=== PATIENT | female | born 1955 | race Caucasian/White ===

== ENCOUNTER 2018-05-04 09:29 | Emergency (ER) | payer BC ==
--- NOTE | 2018-05-04 10:04 | UC ---
Upper Extremity HPI - HPI Summary HPI Summary: 62 yo female presents accompanied by with complains of left shoulder/ upper arm pain for the past month that is worse today. says that pt has had CVAs in the past and her mental status has changed due to this, but nothing new and has had no changes over the last month since pain began. Pt tells me that for the last month she has been having left shoulder/upper arm pain that is worse with movement. She says that the pain starts at her left upper arm near her shoulder and radiates down to her proximal left forearm. Pain worse with movement and palpation. confirms the above. Pt has not taken anything OTC for her discomfort. Pain is better with rest and with not moving the extremity. Over the last few days has felt like her right arm is starting to bother her too and thinks that she might be using her right arm more recently due to pain in her left arm. says that pt had a similar issue after her CVAs and went to physical therapy with good results. Denies fever, recent illness, injury, fall, numbness, tingling, headache, dizziness, SOB, or chest pain. - History of Current Complaint Chief Complaint: UCAlteredMentalStatus Stated Complaint: ARM PAIN Time Seen by Provider: 05/04/18 09:33 Hx Obtained From: Patient, Family/Job Service Consultant Onset/Duration: Gradual Onset Severity Initially: Moderate Severity Currently: Severe Pain Intensity: 10 Pain Scale Used: 0-10 Numeric - Allergies/Home Medications Allergies/Adverse Reactions: Allergies Allergy/AdvReac Type Severity Reaction Status Date / Time Penicillins Allergy unk Verified 05/04/18 09:44 rivaroxaban Allergy unk Verified 05/04/18 09:45 Home Medications: Home Medications Allopurinol TAB* [Zyloprim 100 MG TAB*] 100 mg PO DAILY 05/04/18 [History Confirmed 05/04/18] Apixaban* [Eliquis*] 5 mg PO DAILY 05/04/18 [History Confirmed 05/04/18] Spironolactone TAB* [Aldactone TAB 25 MG*] 25 mg PO DAILY 05/04/18 [History Confirmed 05/04/18] raNITIdine HCl [Zantac 75] 150 mg PO DAILY 05/04/18 [History Confirmed 05/04/18] PMH/Surg Hx/FS Hx/Imm Hx - Additional Past Medical History Additional PMH: CVA Afib CHF Anemia Lymphoma Endocrine History: Hypothyroidism - Surgical History Surgical History: Yes Surgery Procedure, Year, and Place: LAPAROTOMY FOR HODGKINS DISEASE, HYSTERECTOMY cva x 2 - Family History Known Family History: Positive: Hypertension, Diabetes - Social History Lives: With Family Alcohol Use: Rare Substance Use Type: None Smoking Status (MU): Former Smoker - Immunization History Most Recent Influenza Vaccination: 2013 Most Recent Tetanus Shot: 2008 Most Recent Pneumonia Vaccination: 2010 Review of Systems All Other Systems Reviewed And Are Negative: Yes Constitutional: Positive: Negative Skin: Positive: Negative Respiratory: Positive: Negative Cardiovascular: Positive: Negative Gastrointestinal: Positive: Negative Neurovascular: Positive: Negative Musculoskeletal: Positive: Other: - Left upper arm pain Neurological: Positive: Negative Psychological: Positive: Negative Physical Exam - Summary Physical Exam Summary: GENERAL: NAD. WDWN. No pain distress. SKIN: No rashes, sores, lesions, or open wounds. CHEST: No accessory muscle use. Breathing comfortably and in no distress. CV: Pulses intact radial and ulnar. Cap refill <2seconds MSK: LEFT UE: TTP at biceps tendon near coracoid. TTP along biceps muscle with worst pain at mid biceps. Pain with elbow flexion and with >90deg shoulder flexion. Elbow NTTP. 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 No edema or obvious bony deformities. No cervical pain, posterior shoulder pain, or trapezius pain. NEURO: Alert. Sensations intact hand and all fingers. PSYCH: Age appropriate behavior. Triage Information Reviewed: Yes Vital Signs: Initial Vital Signs Temp 98 F 05/04/18 09:40 Pulse 66 05/04/18 09:40 Resp 16 05/04/18 09:40 BP 194/45 05/04/18 09:40 Pulse Ox 100 05/04/18 09:40 Vital Signs Reviewed: Yes Upper Extremity Course/Dx - Course Course Of Treatment: EKbpm afib with LVH as read by Dr. Torres. XR shoulder : IMPRESSION: AC joint arthritis. Left shoulder is otherwise unremarkable. XR humerus: IMPRESSION: No fracture of the left humerus is noted. Suspect tendinitis. Discussed with pt and and will try pt with physical therapy and advise her to take tylenol. F/u with PCP in 1-2 weeks for recheck. - Differential Dx/Diagnosis Provider Diagnosis: Biceps muscle strain, Afib Discharge - Sign-Out/Discharge Documenting (check all that apply): Patient Departure All imaging exams completed and their final reports reviewed: Yes - Discharge Plan Condition: Stable Disposition: HOME Patient Education Materials: Tendinitis (ED) Referrals: Talya Brooks MD [Primary Care Provider] - 1 Week Additional Instructions: If you develop a fever, shortness of breath, chest pain, new or worsening symptoms - please call your PCP or go to the ED. Your blood pressure was elevated at todays visit. Please see your primary provider within 4 weeks for recheck and re-evaluation. May take tylenol for discomfort. Please schedule a follow up with Physical Therapy for further evaluation and treatment of your arm pain Please make a follow up appointment with your Primary Doctor for 1-2 weeks for a recheck of your pain - Billing Disposition and Condition Condition: STABLE Disposition: Home
[2018-05-04 10:11] VITALS: BP 157/47
== END 2018-05-04 11:02 | disposition home or self-care (01) ==
LOC: UCEAST 09:29
DX: S46.212A Strain of muscle, fascia and tendon of other parts of biceps, left arm, initial encounter (principal); X58.XXXA Exposure to other specified factors, initial encounter; Y92.9 Unspecified place or not applicable; M19.012 Primary osteoarthritis, left shoulder; I48.91 Unspecified atrial fibrillation; Z79.01 Long term (current) use of anticoagulants; Z88.0 Allergy status to penicillin; Z88.8 Allergy status to other drugs, medicaments and biological substances; Z87.891 Personal history of nicotine dependence
CPT/HCPCS: 99211; G0463

== ENCOUNTER 2018-10-14 14:41 | Emergency (ER) | payer BC ==
[2018-10-14 16:17] VITALS: BP 157/50
--- NOTE | 2018-10-14 16:45 | UC ---
Respiratory Complaint HPI - HPI Summary HPI Summary: 62-year-old woman comes in with a chief complaint of upper respiratory tract infection symptoms for slightly less a week. She's had rhinorrhea cough chest congestion fevers. Denies any wheezing. - History of Current Complaint Chief Complaint: UCGeneralIllness Stated Complaint: COUGH,GARCÍA,SINUSES Time Seen by Provider: 10/14/18 16:15 Pain Intensity: 0 - Allergies/Home Medications Allergies/Adverse Reactions: Allergies Allergy/AdvReac Type Severity Reaction Status Date / Time Penicillins Allergy unk Verified 10/14/18 16:17 rivaroxaban Allergy unk Verified 10/14/18 16:17 Home Medications: Home Medications Digoxin TAB* [Lanoxin TAB*] 0.125 mg PO BEDTIME 10/14/18 [History Confirmed 08/28] PMH/Surg Hx/FS Hx/Imm Hx Previously Healthy: Yes Cardiovascular History: Atrial Fibrillation Respiratory History: Asthma Neurological History: CVA - Surgical History Surgical History: Yes Surgery Procedure, Year, and Place: LAPAROTOMY FOR HODGKINS DISEASE, HYSTERECTOMY, cva x 2 - Family History Known Family History: Positive: Hypertension, Diabetes - Social History Alcohol Use: Rare Substance Use Type: None Smoking Status (MU): Former Smoker - Immunization History Most Recent Influenza Vaccination: 2013 Most Recent Tetanus Shot: 2008 Most Recent Pneumonia Vaccination: 2010 Review of Systems All Other Systems Reviewed And Are Negative: Yes Constitutional: Positive: Fever Skin: Positive: Negative Eyes: Positive: Negative ENT: Positive: Nasal Discharge, Sinus Congestion Respiratory: Positive: Cough, Other - SEE HPI Cardiovascular: Positive: Negative Gastrointestinal: Positive: Negative Motor: Positive: Other - HX CVA Neurovascular: Positive: Other - HX CVA Musculoskeletal: Positive: Other: - HX CVA Neurological: Positive: Other - HX CVA Psychological: Positive: Negative Is Patient Immunocompromised?: No Physical Exam Triage Information Reviewed: Yes Appearance: No Pain Distress, Well-Nourished, Ill-Appearing - MILD Vital Signs: Initial Vital Signs Temp 100.5 F 10/14/18 16:13 Pulse 68 10/14/18 16:13 Resp 36 10/14/18 16:13 BP 157/50 10/14/18 16:13 Pulse Ox 97 10/14/18 16:13 Vital Signs Reviewed: Yes Eye Exam: Normal Eyes: Positive: Conjunctiva Clear ENT: Positive: Pharyngeal erythema, Nasal congestion, Nasal drainage, TMs normal Neck: Positive: Supple Respiratory: Positive: No respiratory distress, Rhonchi Cardiovascular: Positive: RRR Musculoskeletal Exam: Normal Musculoskeletal: Positive: Strength Intact, ROM Intact Neurological: Positive: Alert, Muscle Tone Normal, Other: - HX CVA; SPEECH IS LIMITED CHRONIC Psychological Exam: Normal Psychological: Positive: Age Appropriate Behavior Skin Exam: Normal Respiratory Course/Dx - Course Course Of Treatment: DISCUSSED VIRAL VERSES BACTERIAL INFECTION AND THE ROLE OF ANTIBIOTICS. THE PATIENT PREFERS TO BE ON ANTIBIOTICS AT THIS TIME. - Differential Dx/Diagnosis Provider Diagnosis: Bronchitis Discharge - Sign-Out/Discharge Documenting (check all that apply): Patient Departure All imaging exams completed and their final reports reviewed: No Studies - Discharge Plan Condition: Stable Disposition: HOME Prescriptions: Azithromycin TAB* [Zithromax TAB (Z-FELICITAS) 250 mg #6 tabs] 2 tab PO .TODAY, THEN 1 DAILY #1 felicitas Patient Education Materials: Acute Bronchitis (ED) Referrals: Talya Brooks MD [Primary Care Provider] - Additional Instructions: FOLLOW UP WITH YOUR DOCTOR IF NOT COMPLETELY IMPROVED. GET REEVALUATED SOONER IF WORSE OR ANY QUESTIONS OR CONCERNS. - Billing Disposition and Condition Condition: STABLE Disposition: Home
== END 2018-10-14 16:51 | disposition home or self-care (01) ==
LOC: UCCORT 14:41
DX: J40 Bronchitis, not specified as acute or chronic (principal); Z88.0 Allergy status to penicillin; I48.91 Unspecified atrial fibrillation; Z86.73 Personal history of transient ischemic attack (TIA), and cerebral infarction without residual deficits; Z87.891 Personal history of nicotine dependence
CPT/HCPCS: 99212; G0463

== ENCOUNTER 2019-06-20 03:05 | Inpatient (IN) | payer BC ==
[2019-06-20] MEDS ORDERED: NS 0.9% 1000 ML** 1,000 ML IV ONE (03:07)
--- OUTSIDE RECORDS SUMMARY | 2019-06-20 03:15 | XMS REPORT | Summary of Care ---
:1955 Author Organization [facility] Address [address] [facility] [place] [address] Care Team Providers Name Role Phone Talya Brooks Primary Care Provider Avila Agueda Unavailable Unavailable Reason for Visit Reason Comments Other medical release paper for [facility] Imm/Inj prevnar 13 administered today Encounter Details Date Type Department Care Team Description 05/10/2019 Office Visit [place] [facility] Talya Brooks MD Chronic atrial fibrillation (Primary Dx); Medicine [address] Takotsubo cardiomyopathy; [address] [place] [address] Cardiomyopathy, nonischemic (HCC); [place] [address] Hypothyroidism, unspecified type; [phone] TIA (transient ischemic attack); (Fax) Anticoagulant long-term use; Need for vaccination; Elevated blood sugar Allergies Active Allergy Reactions Severity Noted Date Comments Amiodarone GI Reaction 11/05/2008 Aspirin GI Reaction 05/05/2007 Peptic ulcer disease Bactrim Unknown Reaction 05/06/2007 Unsure if even allergic Olmesartan GI Reaction 05/20/2009 Medoxomil-Hctz Clarithromycin Unknown Reaction 05/05/2007 Carvedilol Rash High 08/29/2014 Diltiazem [employer] Reaction 11/18/2015 Bugs crawling on legs Estrogens Unknown Reaction 05/05/2007 Atorvastatin GI Reaction 02/01/2014 Lisinopril GI Reaction 02/01/2014 Penicillins Unknown Reaction 05/05/2007 Progesterone Other 10/11/2007 Propafenone Respiratory Reaction 02/20/2010 Spironolactone GI Reaction 08/26/2015 Rivaroxaban Other, GI Reaction 10/18/2013 Not clear - may have also been other medication documented as of this encounter (statuses as of 05/30/2019) Medications Medication Sig Dispensed Refills Start End Date Status Date acetaminophen Take 500 mg by 0 Active (TYLENOL) 500 MG mouth EVERY Oral Tab SIX HOURS NEEDED for Pain. famotidine (PEPCID) TAKE 1 TABLET 180 Tab 1 Active 40 MG Oral Tab BY MOUTH TWO 8 TIMES DAILY ELIQUIS 5 MG Oral TAKE 1 TABLET 60 Tab 11 Active Tab BY MOUTH TWO 8 TIMES DAILY Magnesium Oxide 400 TAKE 1 TABLET 180 Tab 3 Active (240 Mg) MG Oral Tab BY MOUTH TWO 9 TIMES DAILY atorvastatin TAKE 1 TABLET 90 Tab 3 Active (LIPITOR) 10 MG Oral BY MOUTH EVERY 9 Tab DAY allopurinol TAKE 1 TABLET 90 Tab 3 Active (ZYLOPRIM) 100 MG BY MOUTH EVERY 9 Oral TabIndications: DAY Essential hypertension spironolactone 50 MG Take 1 Tab by 30 Tab 0 Active Oral TabIndications: mouth DAILY. 9 Cardiomyopathy, nonischemic (HCC) Bisoprolol Fumarate Take 1 Tab by 30 Tab 11 Active 10 MG Oral mouth DAILY. 9 TabIndications: Cardiomyopathy, nonischemic (HCC) levothyroxine TAKE 1 TABLET 90 Tab 0 Active (SYNTHROID) 175 MCG BY MOUTH EVERY 9 Oral TabIndications: DAY Hypothyroidism, unspecified type digoxin (LANOXIN, Take 1 Tab by 30 Tab 11 Active DIGITEK) 125 MCG mouth DAILY. 0 Oral TabIndications: Chronic atrial fibrillation fluocinonide (LIDEX) by Topical 1 0 05/10/19 Discontinued 0.05% Apply route 8 20 (Patient stopped externally Cream NEEDED itch the medication) Apply externally prn triamcinolone USE 75 g 5 05/10/19 Discontinued (KENALOG,ARISTOCORT) DIRECTED TWO 4 20 (Patient stopped 0.1 % Apply TIMES A DAY the medication) externally Cream levalbuterol HFA Take 1-2 Puffs 1 Inhaler 1 05/10/19 Discontinued (XOPENEX HFA) 45 by inhalation 6 20 (Patient stopped MCG/ACT Inhalation EVERY SIX the medication) AerosolIndications: HOURS Cough NEEDED (cough). Cholecalciferol Take by 0 05/10/19 Discontinued (VITAMIN D3) 2000 mouth. 20 (Patient stopped UNITS Oral Cap the medication) torsemide (DEMADEX) Take 1 Tab by 90 Tab 3 05/10/19 Discontinued 10 MG Oral Tab mouth DAILY 8 20 (Patient stopped NEEDED (Leg the medication) swelling, shortness of breath, or weight gain). levothyroxine Take 1 Tab by 90 Tab 3 05/10/19 Discontinued (SYNTHROID) 200 MCG mouth BEFORE 8 20 (Therapy Oral TabIndications: BREAKFAST. Completed) Hypothyroidism, unspecified type levothyroxine Take 1 Tab by 90 Tab 3 05/10/19 Discontinued (SYNTHROID) 175 MCG mouth BEFORE 8 20 (Duplicate Oral TabIndications: BREAKFAST. Order) Hypothyroidism, unspecified type azithromycin Take 2 pills 1 6 Tab 0 05/14/19 (ZITHROMAX) 250 MG hour before 0 20 Oral Tab dental work documented as of this encounter (statuses as of 05/30/2019) Active Problems Problem Noted Date Nonrheumatic aortic valve stenosis 07/01/2015 Chronic atrial fibrillation 06/20/2015 Lung mass 02/28/2015 Overview: Noted hospitalization [facility] - seen under fluoro- More work up Pulmonary hypertension 02/27/2015 Type 2 diabetes mellitus without complication 11/27/2014 jail (current) use of anticoagulants 05/08/2014 Overview: 02/19/16 On Eliquis Managed by: [facility] Referring Provider: Hany Indication: afib Target Range: 2.0-3.0 Duration: Indefinite Additional factors influencing anticoagulation: CHADS2 score of 4 for previous stroke/TIA, hypertension, congestive heart failure Levothyroxine increases warfarin effect Has been on warfarin previously. Tried other NOACs, but had significant side effects Updated Referral: 05/03/14, 06/2015 Updated ACS Orders: 05/04/14, 07/01/15 DM (diabetes mellitus) 05/07/2014 Cardiomyopathy, nonischemic 02/08/2014 Meningioma 05/22/2013 Overview: Removed from spinal cord by Dr Belle BMI 30.0-30.9,adult 08/05/2011 Gout, unspecified 07/08/2011 Overview: Dx by Dr. Pereira, director of early childhood, 2012. Cerebral infarction 02/20/2010 Overview: Post spinal surgery with Dr Belle Takotsubo cardiomyopathy 05/20/2009 Acquired absence of uterus 11/05/2008 Overview: Also ovaries- had dysplasia A-fib 10/05/2008 Overview: Paroxysmal - Cath 02/17- no CAD Patient however did have CHF following KRYSTA at [facility]- EF transiently reported to be 25%- Diagnosis with Takotsuvo syndrome- Has tried NOAC with GI issues - Hypothyroid 05/31/2007 Asthma 05/31/2007 Spinal stenosis of thoracic region 05/31/2007 Overview: Surgery with damage to cord Esophageal reflux 05/05/2007 Personal history of Hodgkin's disease 05/05/2007 Overview: Treated with radiation and chemotherapy 1974 Migraine headache 05/05/2007 Sjogrens Syndrome 05/05/2007 Essential hypertension, benign documented as of this encounter (statuses as of 05/30/2019) Resolved Problems Problem Noted Date Resolved Date Meningitis 05/05/2007 10/11/2007 Overview: Documented as having Meningitis in 1977 Pneumonia, organism unspecified(486) 05/05/2007 10/11/2007 Overview: Documented as having pneumonia in 1974 Bursitis, shoulder 05/05/2007 10/11/2007 documented as of this encounter (statuses as of 05/30/2019) Immunizations Name Administration Dates Next Due Influenza (IM) Preservative Free 01/27/2018, 04/01/2015, 03/20/2011, 02/20/2010, 02/06/2008 Influenza (IM) W/Pres 02/01/2014 Influenza Vaccine 65 Yrs + 02/01/2019 Influenza Vaccine Whole 01/14/2017, 02/07/2009 Influenza Virus Vaccine - Whole 02/24/2007, 02/24/2006 PNEUMOCOCCAL POLYSACCHARIDE VACCINE 02/01/2002 Pneumococcal Conjugate(13 Valent) 05/10/2019 documented as of this encounter Social History Tobacco Use Types Packs/Day Years Used Date Never Smoker Smokeless Tobacco: Never Used Alcohol Use Drinks/Week oz/Week Comments No 0 Standard drinks or equivalent 0.0 Sex Assigned at Date Recorded Not on file documented as of this encounter Last Filed Vital Signs Vital Sign Reading Time Taken Comments Blood Pressure 136/78 05/10/2019 3:50 PM EST Pulse 87 05/10/2019 3:50 PM EST Temperature - - Respiratory Rate - - Oxygen Saturation 98% 05/10/2019 3:50 PM EST Inhaled Oxygen Concentration - - Weight 62.5 kg (137 lb 11.2 oz) 05/10/2019 3:50 PM EST Height 152.4 cm (5') 05/10/2019 3:50 PM EST Body Mass Index 26.89 05/10/2019 3:50 PM EST documented in this encounter Patient Instructions Patient InstructionsTalya Brooks MD - 05/10/2019 3:40 PM ESTTake 2 azithmycin ~ 1 hour before dental work - documented in this encounter Progress Notes Talya Brooks MD - 05/10/2019 3:40 PM EST NAME:Alecia Ortiz 1955: 1955 ENC Date: 05/30/2019 CC: Chief Complaint Patient presents with ? Other medical release paper for [facility] ? Imm/Inj prevnar 13 administered today Alecia Ortiz is a 63-y.o. female Complicated medical patient with the following diagnosis : h/o Tako-tsubo cardiomyopathy , HTN permanent Afib, CVA x 2, Hodgkin's disease s/p chest XRT but no chemo in 1973. 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 Current Outpatient Medications Medication Sig ? acetaminophen (TYLENOL) 500 MG Oral Tab Take 500 mg by mouth EVERY SIX HOURS NEEDED for Pain. ? allopurinol (ZYLOPRIM) 100 MG Oral Tab TAKE 1 TABLET BY MOUTH EVERY DAY ? atorvastatin (LIPITOR) 10 MG Oral Tab TAKE 1 TABLET BY MOUTH EVERY DAY ? Bisoprolol Fumarate 10 MG Oral Tab Take 1 Tab by mouth DAILY. ? digoxin (LANOXIN, DIGITEK) 125 MCG Oral Tab Take 1 Tab by mouth DAILY. ? ELIQUIS 5 MG Oral Tab TAKE 1 TABLET BY MOUTH TWO TIMES DAILY ? famotidine (PEPCID) 40 MG Oral Tab TAKE 1 TABLET BY MOUTH TWO TIMES DAILY ? levothyroxine (SYNTHROID) 175 MCG Oral Tab TAKE 1 TABLET BY MOUTH EVERY DAY ? Magnesium Oxide 400 (240 Mg) MG Oral Tab TAKE 1 TABLET BY MOUTH TWO TIMES DAILY ? spironolactone 50 MG Oral Tab Take 1 Tab by mouth DAILY. No current facility-administered medications for this visit. Patient Active Problem List Diagnosis Date Noted ? Nonrheumatic aortic valve stenosis 07/01/2015 Priority: High ? Chronic atrial fibrillation 06/20/2015 Priority: High ? DM (diabetes mellitus) (HCC) 05/07/2014 Priority: High ? Takotsubo cardiomyopathy 05/20/2009 Priority: High ? intermodal truck driver (current) use of anticoagulants 05/08/2014 Priority: Medium 02/19/16 On Eliquis Managed by: [facility] Referring Provider: Hany Indication: afib Target Range: 2.0-3.0 Duration: Indefinite Additional factors influencing anticoagulation: CHADS2 score of 4 for previous stroke/TIA, hypertension, congestive heart failure Levothyroxine increases warfarin effect Has been on warfarin previously. Tried other NOACs, but had significant side effects Updated Referral: 05/03/14, 06/2015 Updated ACS Orders: 05/04/14, 07/01/15 ? Lung mass 02/28/2015 Noted hospitalization [facility] - seen under fluoro- More work up ? Pulmonary hypertension (HCC) 02/27/2015 ? Type 2 diabetes mellitus without complication (HCC) 11/27/2014 ? Cardiomyopathy, nonischemic (HCC) 02/08/2014 ? Meningioma (HCC) 05/22/2013 Removed from spinal cord by Dr Belle ? BMI 30.0-30.9,adult 08/05/2011 ? Gout, unspecified 07/08/[address] Pereira, director of early childhood, 2011. ? Cerebral infarction (HCC) 02/20/[address] spinal surgery with Dr Belle ? Acquired absence of uterus 11/05/2008 Also ovaries- had dysplasia ? A-fib (HCC) 10/05/2008 Paroxysmal - Cath 02/17- no CAD Patient however did have CHF following KRYSTA at [facility]- EF transiently reported to be 25%- Diagnosis with Takotsuvo syndrome- Has tried NOAC with GI issues - ? Essential hypertension, benign ? Hypothyroid 05/31/2007 ? Asthma 05/31/2007 ? Spinal stenosis of thoracic region 05/31/2007 Surgery with damage to cord ? Esophageal reflux 05/05/2007 ? Personal history of Hodgkin's disease 05/05/2007 Treated with radiation and chemotherapy 1974 ? Migraine headache 05/05/2007 ? Sjogrens Syndrome 05/05/2007 Family History Problem Relation Age of Onset ? Heart Mother ? Diabetes Mother ? Psychiatry Mother ? Heart Father ? Stroke Father ? Heart Sister ? Breast Cancer Maternal Aunt No cardiopulmonary symptoms No upper or lower GI complaints No urinary tract symptoms. No bruising/ bleeding. No neurological complaints( weak on right side ) . No insomnia.+ . Social History Tobacco Use ? Smoking status: Never Smoker ? Smokeless tobacco: Never Used Substance Use Topics ? Alcohol use: No Alcohol/week: 0.0 standard drinks ? Drug use: No OBJECTIVE: BP 136/78 | Pulse 87 | Ht 5' (1.524 m) | Wt 137 lb 11.2 oz (62.5 kg) | SpO2 98% | BMI 26.89 kg/m . A/P ICD-9-CM ICD-10-CM 1. Chronic atrial fibrillation 427.31 I48.20 2. Takotsubo cardiomyopathy 429.83 I51.81 3. Cardiomyopathy, nonischemic (HCC) 425.4 I42.8 4. Hypothyroidism, unspecified type 244.9 E03.9 THYROID STIMULATING HORMONE BASIC METABOLIC PANEL 5. TIA (transient ischemic attack) 435.9 G45.9 6. Anticoagulant long-term use V58.61 Z79.01 7. Need for vaccination V05.9 Z23 [place] PNEUMOCOCCAL CONJ VAC(13 VALENT)(Z23) 8. Elevated blood sugar 790.29 R73.9 GLYCOHEMOGLOBIN A1C MICROALBUMIN, RANDOM URINE W/ CREATININE Patient Instructions Take 2 azithmycin ~ 1 hour before dental work - form for as pen dental AUTHOR: Talya Brooks MD 08:56 05/30/2019 documented in this encounter Plan of Treatment Date Type Specialty Care Team Description 08/03/2019 Lab Internal Medicine 08/08/2019 Orders Only Cardiology 08/10/2019 Office Visit Internal Medicine Talya Brooks MD [address] [place] [address] [phone] 08/14/2019 Office Visit Cardiology Lamine Almanza MD [facility] [place] [id number] [phone] Name Type Priority Associated Diagnoses Order Schedule THYROID STIMULATING HORMONE Lab Routine Hypothyroidism, Expected: 2019 unspecified type (Approximate), Expires: 05/10/2020 BASIC METABOLIC PANEL Lab Routine Hypothyroidism, Expected: 05/10/2019 unspecified type (Approximate), Expires: 11/06/2019 GLYCOHEMOGLOBIN A1C Lab Routine Elevated blood sugar Expected: 05/10/2019 (Approximate), Expires: 11/06/2019 MICROALBUMIN, RANDOM URINE Lab Routine Elevated blood sugar 1 Occurrences starting W/ CREATININE 05/10/2019 until 11/06/2019 Health Maintenance Due Date Last Done Comments Diabetic Eye Exam 1955 MAMMOGRAM (SCREENING) 07/30/2010 07/30/2009, 06/22/2007 HEMOGLOBIN A1C 11/01/2018 05/04/2018, 08/30/2017, 03/30/2017, Additional history exists OSTEOPOROSIS SCREENING 2018 FOOT EXAM 01/06/2019 01/06/2018, 01/06/2018, 01/06/2018, Additional history exists URINE MICROALBUMIN 05/04/2019 05/04/2018, 09/03/2015 DTaP/Tdap/Td Vaccines (1 - 08/04/2019 Postponed from Tdap) 1966 (Other) LIPID DISORDER SCREENING 09/13/2019 09/12/2018, 05/04/2018, 12/30/2017, Additional history exists DEPRESSION SCREENING 05/10/2020 05/10/2019 FALL RISK ASSESSMENT 05/10/2020 05/10/2019, 05/10/2019 PNEUMOCOCCAL 65+YRS (2 of 2 05/10/2020 05/10/2019, 02/01/2002 - PPSV23) ZOSTER IMMUNIZATION SERIES 05/10/2020 Postponed from (1 of 2) 12/29/2003 (Vaccine not available) INFLUENZA VACCINE Completed 02/01/2019, 01/27/2018, 01/14/2017, Additional history exists HEPATITIS A IMMUNIZATION Aged Out No longer eligible SERIES based on patient's age to complete this topic HPV IMMUNIZATION SERIES Aged Out No longer eligible based on patient's age to complete this topic MENINGOCOCCAL VACCINE IMM Aged Out No longer eligible based on patient's age to complete this topic documented as of this encounter Goals Goal Patient Goal Associated Recent Patient-Stated? Author Type Problems Progress Blood Pressure Blood Pressure 136/78 No Todd, < 140/90 (05/10/2019 MD Talya 3:50 PM EST) Note: This is an individualized treatment (blood pressure) goal for Alecia Ortiz: Displayed above (on the left) is your goal for blood pressure control. Your most recent blood pressure is also shown above, on the right. You should try to achieve blood pressures that are lower than your goal listed above (on the left). Weight increase vs. 18 mo min CHF 1.7 (05/10/2019 3:50 PM EST) No Talya Brooks MD (lbs) < 5 Note: This is an individualized treatment (congestive heart failure, CHF) goal for Alecia Ortiz: Displayed above (on the right) is how many pounds you are in excess of your lowest weight over the past 18 months. Note that lower numbers are better. Excessive weight gain often indicates fluid reten tion and worsening heart failure. You should contact your doctor immediately if the above number is too high (above your goal, the number on the left). Glycohemoglobin A1c < 7.0 Diabetes 6.8 (05/04/2018 11:37 AM No Talya Brooks MD EST) Note: This is an individualized treatment (diabetes control, HgbA1C) goal for Alecia Ortiz: Displayed above is your progress towards your HgbA1C goal. Your goal is shown above (on the left); your most recent HgbA1C is shown on the right. Note that lower numbers are better. Keep immunizations current Lifestyle Talya Rogers MD Note: This is an individualized lifestyle goal for Alecia Ortiz: Please be sure to keep up-to-date on recommended immunizations. For example, this would include a yearly influenza vaccine. Immunization status can be seen by looking at the Health Maintenance sections of your [facility], Plan of Care, and any After Visit Summaries. Consume a [id number] diet Lifestyle No Talya Brooks MD Note: This is an individualized lifestyle goal for Alecia Ortiz: Please do not add additional salt to your food. Additional salt may lead to fluid retention and worsen your congestive heart failure. Take all prescribed medications as directed Self-management No Talya Brooks MD Note: This is an individualized self-management goal for Alecia Ortiz: Please take all prescribed medications as directed. 1. Do not skip doses. If you cannot afford your medications, talk with your doctor. 2. Use a pill reminder system such as a pill box if needed. Your pharmacist can help you with this. 3. Contact your Pharmacy 5 days before your medication runs out. If you cannot take your medications for any reasons, talk with your doctor. 4. Please bring all of your medication bottles and inhalers (or a list of all your medications/inhalers) with you to every visit. Potential barriers to meeting all of your care plan goals will continue to be addressed on an ongoing basis. Check your weight daily Self-management No Talya Brooks MD Note: This is an individualized self-management goal for Alecia Ortiz: Please check your weight daily. Refer to the accompanying CHF treatment goal and call your doctor immediately for further instructions on how to respond to unexpected weight gain. documented as of this encounter Results Not on filedocumented in this encounter Visit Diagnoses Diagnosis Chronic atrial fibrillation Atrial fibrillation Takotsubo cardiomyopathy Takotsubo syndrome Cardiomyopathy, nonischemic (HCC) Other primary cardiomyopathies Hypothyroidism, unspecified type TIA (transient ischemic attack) Unspecified transient cerebral ischemia Anticoagulant long-term use Encounter for long-term (current) use of anticoagulants Need for vaccination Need for prophylactic vaccination and inoculation against unspecified single disease Elevated blood sugar Other abnormal glucose documented in this encounter Insurance Payer Benefit Plan / Subscriber ID Effective Dates Phone Address Type Group [employer] [id number] 2017-Present [employer] documented as of this encounter"
[2019-06-20] MEDS ORDERED: Iodixanol* (CONTRAST) 320 MG/ML 100 ML SDV IV ONE (03:19)
[2019-06-20] MEDS ORDERED: Ondansetron INJ* 2 MG/ML VIAL ONE ×2 (03:33→07:18)
--- NOTE | 2019-06-20 03:34 | ED ---
Neurological HPI - HPI Summary HPI Summary: Patient is a 63 y/o F w/ Hx of LVO of left internal carotid artery three years ago, afib, Hodgkin's lymphoma, CHF, HTN, cardiomyopathy who presents to [facility] via EMS for bilateral upper extremity weakness, facial droop, aphasia, and vomiting. accompanied the patient. It is reported that around 0230 , the patient had attempted to get out of bed, heard the patient fall at this time. Patient landed on wooden floor. found the patient with facial droop, bilateral arm weakness, and aphasia. Last known well is 233. The patient is on Eliquis for afib, claims to have given her an extra dose of Eliquis this evening. EMS reported that the patient had vomited en route and administered 4 mg Zofran. EMS BG is 122. EMS arrival at 0304, provider at bedside immediately to evaluate. Peter arora called at 0306, patient was wheeled to CT at this time. Patient is not a TPA candidate due to anti- coagulation therapy. Patient is a level 5 caveat secondary to aphasia. - History of Current Complaint Stated Complaint: POSSIBLE STORKE Time Seen by Provider: 06/20/19 03:06 Hx Obtained From: EMS Hx From Patient Unobtainable Due To: Other - level 5 caveat secondary to aphasia. Onset/Duration: Still Present Timing: Constant Neurological Deficit Location: Facial, RUE, LUE Character: Motor Weakness, Impaired Speech Associated Signs and Symptoms: Positive: Weakness, Impaired Speech, Nausea/ Vomiting - Additional Pertinent History Primary Care Physician: [id number] - Allergy/Home Medications Allergies/Adverse Reactions: Allergies Allergy/AdvReac Type Severity Reaction Status Date / Time carvedilol Allergy Rash Verified 06/20/19 03:40 clarithromycin Allergy Unknown Verified 06/20/19 03:40 Reaction Details diltiazem Allergy Anaphylatic Verified 06/20/19 03:40 Shock Estrogens Allergy Unknown Verified 06/20/19 03:40 Reaction Details Penicillins Allergy unk Verified 06/20/19 03:33 progesterone Allergy Unknown Verified 06/20/19 03:40 Reaction Details propafenone Allergy Hives/Diff. Verified 06/20/19 03:40 Breathing/I tching rivaroxaban Allergy unk Verified 06/20/19 03:33 spironolactone Allergy GI Upset Verified 06/20/19 03:40 sulfamethoxazole Allergy Unknown Verified 06/20/19 03:40 [From Bactrim] Reaction Details trimethoprim [From Bactrim] Allergy Unknown Verified 06/20/19 03:40 Reaction Details amiodarone AdvReac GI Upset Verified 06/20/19 03:40 aspirin AdvReac GI Upset Verified 06/20/19 03:40 lisinopril AdvReac GI Upset Verified 06/20/19 03:40 olmesartan AdvReac GI Upset Verified 06/20/19 03:40 Home Medications: Home Medications Levothyroxine TAB* [Synthroid 100 MCG TAB*] 175 mcg PO BEDTIME 12/18/15 [ History Confirmed 06/20/19] Allopurinol TAB* [Zyloprim 100 MG TAB*] 100 mg PO BEDTIME 05/04/18 [History Confirmed 06/20/19] Spironolactone TAB* [Aldactone TAB 25 MG*] 50 mg PO BEDTIME 05/04/18 [History Confirmed 06/20/19] Digoxin TAB* [Lanoxin TAB*] 0.125 mg PO BEDTIME 10/14/18 [History Confirmed 01/29] Atorvastatin* [Lipitor 10 MG*] 10 mg PO DAILY 06/20/19 [History Confirmed ] Famotidine 40 mg PO DAILY 06/20/19 [History Confirmed 06/20/19] Magnesium Oxide TAB* [MagOx 400 TAB*] 400 mg PO BID 06/20/19 [History Confirmed 06/20/19] Apixaban* [Eliquis*] 5 mg PO BID 30 Days #30 06/23/19 [Rx Confirmed 06/20/19] Benzocaine/Menthol SARA* [Chloraseptic SARA*] 1 sara PO Q6H PRN lozenge 06/23/19 [ Rx] Bisoprolol TAB* [Zebeta TAB*] 5 mg PO BEDTIME 30 Days #30 06/23/19 [Rx Confirmed 06/20/19] levETIRAcetam TAB* [Keppra TAB*] 500 mg PO Q12H 30 Days #60 tab 06/23/19 [Rx] PMH/Surg Hx/FS Hx/Imm Hx Endocrine/Hematology History: Denies: Hx Diabetes, Hx Systemic Lupus Erythematosus Cardiovascular History: Reports: Hx Congestive Heart Failure, Hx Hypertension, Other Cardiovascular Problems/Disorders - EF 25%, cardiomyopathy Respiratory History: Reports: Hx Asthma, Other Respiratory Problems/Disorders GI History: Reports: Hx Gastroesophageal Reflux Disease History: Denies: Hx Renal Disease Sensory History: Reports: Hx Contacts or Glasses Opthamlomology History: Reports: Hx Contacts or Glasses - Cancer History Cancer Type, Location and Year: HODGKINS DISEASE Hx Chemotherapy: No - Surgical History Surgery Procedure, Year, and Place: LAPAROTOMY FOR HODGKINS DISEASE, HYSTERECTOMY, cva x 2 Hx Anesthesia Reactions: No Infectious Disease History: Denies: Traveled Outside the [place] in Last 30 Days - Family History Known Family History: Positive: Hypertension, Diabetes - Social History Alcohol Use: Rare Substance Use Type: Reports: None Smoking Status (MU): Former Smoker Review of Systems - ROS Summary Review of Systems Summary: Patient is a level 5 caveat secondary to aphasia. Positive: Vomiting Neurological/Mental Status: Other - IMPAIRED SPEECH Positive: Weakness All Other Systems Reviewed And Are Negative: No - Comments Additional Review of Systems Comments: Patient is a level 5 caveat secondary to aphasia. Physical Exam - Summary Physical Exam Summary: General: Well-developed, Well-nourished female. No acute distress. HEENT: Normocephalic, Atraumatic. Eyes: Conjuctiva normal, PERRL. Oropharynx: Clear, mucous membranes moist, (-) exudates. Fresh blood in the oropharynx. Neck: Soft, FROM, (-) lymphadenopathy, (-) thyromegaly, (-) JVD. Cardiovascular: Normal sinus rhythm, (-) murmur. Lungs: Clear to auscultation bilaterally (-) wheezes, (-) rales, (-) rhonchi. Abdomen: Soft, non-tender, non-distended, (-) organomegaly, normal bowel sounds. Back: (-) CVA tenderness Extremities: No edema. Skin: Warm, dry, (-) rash. Neuro: GCS of 12, NIH of 5, see scales for breakdown Psychiatric: Mood normal, affect normal. Triage Information Reviewed: Yes Vital Signs On Initial Exam: Initial Vital Signs Temp 97.5 F 06/20/19 03:30 Pulse 89 06/20/19 03:30 Resp 28 06/20/19 03:30 BP 199/64 06/20/19 03:30 Pulse Ox 100 06/20/19 03:30 Vital Signs Reviewed: Yes Completion Of Physical Exam Limited Due To: Level 5 - Coyote Coma Scale Best Eye Response: 4 - Spontaneous Best Motor Response: 6 - Obeys Commands Best Verbal Response: 2 - Incomprehensible Words Coma Scale Total: 12 Procedures - Sedation Patient Received Moderate/Deep Sedation with Procedure: No Diagnostics - Laboratory Result Diagrams: 06/22/19 06:17 06/22/19 06:17 Lab Statement: Any lab studies that have been ordered have been reviewed, and results considered in the medical decision making process. - CT BRAIN CT CT Interpretation Completed By: Radiologist Summary of CT Findings: BRAIN CT IMPRESSION: Multiple old infarcts as described in detail above. If clinically concerned for. acute infarct further workup with MRI is recommended. THIS REPORT WAS REVIEWED BY ED PHYSICIAN. HEAD CTA CT Interpretation Completed By: Radiologist Summary of CT Findings: HEAD CTA IMPRESSION: No occlusion or significant stenosis. No aneurysm. NECK CTA IMPRESSION: No hemodynamically significant stenosis. No dissection or occlusion. Nodule in the lingula measuring 4.4 mm, further evaluation with CT chest is. recommended. THIS REPORT WAS REVIEWED BY ED PHYSICIAN. - EKG 0514 Cardiac Rate: Other Rate - afib with rate of 64 BPM EKG Rhythm: Atrial Fibrillation Summary of EKG Findings: EKG showed afib with rate of 64 BPM, no STEMI. ED physician has reviewed and interpreted this EKG. NIH Scale - NIH Scale Level of Consciousness: Alert/Keenly Responsive Ask Patient the Month and His/Her Age: Both Correct Ask Pt to Open/Close Eyes and Proposal Editor/Release Non-Paretic Hand: Both Correctly Best Gaze (Only Horizontal Eye Movement): Normal Visual Field Testing: No Visual Loss Facial Paresis-Pt to Smile & Close Eyes or Grimace Symmetry: Normal/Symmetrical Motor Function - Right Arm: No Drift-Holds 10 Seconds Motor Function - Left Arm: No Drift-Holds 10 Seconds Motor Function - Right Leg: No Drift-Holds 10 Seconds Motor Function - Left Leg: No Drift-Holds 10 Seconds Limb Ataxia-Must be out of Proportion to Weakness Present: Absent Sensory (Use Pinprick to Test Arms/Legs/Trunk/Face): Normal Best Language (Describe Picture, Name Items): Mute/Global Aphasia Dysarthria (Read Several Words): Unintelligible or Mute Extinction and Inattention: No Abnormality Total Score: 5 NIH Stroke Scale Comment: 0338 - initial NIH score complete Re-Evaluation - Re-Evaluation First Eval Re-Evaluation Time: 03:32 Comment: Patient returned from CT. It is reported that the patient began to vomit after the CTA; blood was noted in the vomit. Patient is capable of smiling in room, reports this is significantly improved. Second Eval Re-Evaluation Time: 06:30 Comment: We called for admission at 0500. At 0630, was called to room for change to condition. Patient was unresponsive and snoring. states that the patient had seizure-like activity just before this. Hospitalist was called immediately for change in condition. Request to have them come evaluate the patient. At 0700, hospitalist is not present. Dr. Fuentes made aware that the patient is awaiting admission. Course/Dx - Course Course Of Treatment: 63-year-old female presents by ambulance from home after fall. Patient is aphasic. Apparently she got up from her bed to go to the bathroom. Ended up falling with the top half of her on the bed. She also had an episode of vomiting after that. History is obtained from EMS and who arrived shortly thereafter. Patient had equal strength in her arms and legs at presentation. Good extraocular eye movement. But mute. Peter Arora called. Patient sent to CAT scan. After CT head and CT is of head neck patient had vomiting. The vomit appeared to have blood in it. Upon returning to the room patient is able to follow commands. Shake her head yes or no. Full physical exam performed. See NIH, score initially 5. Telemetry neuro consult initiated. CT head read as negative. CTA head and neck returned shortly thereafter as negative. Patient is not a TPA candidate as she is currently on eliquis. There is some vagueness about whether or not she has been taking her morning dose of our eliqius. does note when she started having symptoms today he did give her an extra dose of eliquis although he is not really sure if she took her evening meds. Symptoms gradually improved through this process. She is given Protonix for hematemesis. IV fluids. Zofran. Telemetry neuro consult recommended admission, MRI in the morning. Holding eliquis until that is completed. Workup demonstrates a slightly elevated white count, glucose, and INR. Patient referred to hospitalist for admission. While waiting for admission I was called back to the room at 6:30. Patient had unresponsiveness and snoring respirations when the nurse entered the room. noted that patient had had some seizure- like activity just prior. No history of seizures. Hospitalist date aware. No further orders at this time. - Diagnoses Provider Diagnoses: Aphasia, Hematemesis During the Visit The Following Alert/Code Occurred: Code Freeman - Code arora called at 0306, patient was wheeled to CT at this time. Patient is not a TPA candidate due to anti-coagulation therapy. Brain CT done at 0307. 0334 - report given to transfer center. 0338 - initial NIH score complete 0340 - radiologist called and states brain CT shows no acute process. 0345 - [place] neurologist consult held. 0357 - Radiologist conveys negative Head CTA. - Physician Notifications Discussed Care Of Patient With: Albert Sorensen Time Discussed With Above Provider: 03:45 Instructed by Provider To: Other - Patient's case was discussed with Dr. Sorensen , stroke neurologist at [facility] in [place]. He notes patient is not a TPA candidate and does not see LVO on CTA. 0452 - Dr. Sorensen conducted tele- stroke evaluation, it is recommended that the patient be admitted. MRI to be done and Eliquis held until MRI is completeled. 0503 - Patient's case was discussed with Dr. Coles, Dr. Coles accepts for admission - Critical Care Time Critical Care Time: 75-104 min - 121 minutes of CCT Discharge ED - Sign-Out/Discharge Documenting (check all that apply): Patient Departure - admit - Discharge Plan Condition: Fair Disposition: ADMITTED TO [facility] - Billing Disposition and Condition Condition: FAIR Disposition: Admitted to [facility] - Attestation Statements Document Initiated by Scribe: Yes Documenting Scribe: NIKKY LEGER Provider For Whom Eleno is Documenting (Include Credential): BHAVYA BRYANT MD Scribe Attestation: INIKKY, scribed for BHAVYA BRYANT MD on 06/24/19 at 0036. Scribe Documentation Reviewed: Yes Provider Attestation: The documentation as recorded by the scribeNIKKY accurately reflects the service I personally performed and the decisions made by me, BHAVYA BRYANT MD Status of Scribe Document: Viewed
[2019-06-20] MEDS ORDERED: Pantoprazole IV* 40 MG IV ONE (03:38)
[2019-06-20 03:57] LABS: ABS Basophils 0.1 10^3/ul (0-0.2); ABS Eosinophils 0.1 10^3/ul (0-0.6); ABS Lymphocytes 2.6 10^3/ul (1.0-4.8); ABS Monocytes 0.9 10^3/ul (0-0.8); ABS Neutrophils 9.4 10^3/ul (1.5-7.7); Eosinophil % 1.1 %; Hematocrit 40 % (35-47); Hemoglobin 13.3 g/dL (12.0-16.0); Lymphocyte % 19.7 %; Mean Corpuscular HGB Conc 33 g/dL (31-36); Mean Corpuscular Hemoglobin 31 pg (27-31); Mean Corpuscular Volume 92 fL (80-97); Mean Platelet Volume 8.8 fL (7.4-10.4); Platelet Count 278 10^3/uL (150-450); Red Blood Count 4.36 10^6 /uL (3.70-4.87); Red Cell Distribution Width 15 % (10-15); White Blood Count 13.1 10^3/uL (3.5-10.8)
[2019-06-20 04:03] LABS: Activated Partial Thrombo Time 33.4 seconds (26.0-38.0); INR 1.45 (0.82-1.09)
[2019-06-20 04:13] LABS: Albumin 3.6 g/dL (3.2-5.2); Albumin/Globulin Ratio 1.2 (1-3); BUN/Creatinine Ratio 15.4 (8-20); Calcium 8.6 mg/dL (8.6-10.3); EGFR African American 89.7 (>60); EGFR Non-African American 74.1 (>60); HDL Cholesterol 28.3 mg/dL; Potassium 3.9 mmol/L (3.5-5.0); Total Bilirubin 0.4 mg/dL (0.2-1.0); Total Protein 6.6 g/dL (6.4-8.9)
[2019-06-20 04:14] LABS: Troponin I 0.01 ng/mL (<0.03)
[2019-06-20] MEDS ORDERED: fentaNYL* 50 MCG/ML 2 ML VIAL (100 MCG VIAL) IV SLOW PU ONE (04:21)
[2019-06-20] MEDS ORDERED: Ondansetron INJ* 2 MG/ML VIAL IV ONE ×2 (04:25→07:21)
[2019-06-20 07:03] LABS: Urine Appearance Clear; Urine Bilirubin Negative (Negative); Urine Blood Negative (Negative); Urine Color Yellow; Urine Glucose Negative (Negative); Urine Ketones Negative (Negative); Urine Nitrite Negative (Negative); Urine Protein Negative (Negative); Urine Urobilinogen Negative (Negative)
[2019-06-20] MEDS ORDERED: Lorazepam PYXIS KEY ONE (07:18)
[2019-06-20] MEDS ORDERED: LORazepam INJ* 2 MG/ML 1 ML VIAL ONE (07:19)
[2019-06-20] MEDS ORDERED: LORazepam INJ* 2 MG/ML 1 ML VIAL IV PUSH ONE (07:19)
[2019-06-20] MEDS ORDERED: levETIRAcetam 1000MG IVPREMIX* 1,000 MG/100 ML BAG IVPB ONE (07:33)
[2019-06-20] MEDS ORDERED: NS 0.9% 1000 ML** 1,000 ML IV SCH (08:00)
[2019-06-20] MEDS: NS 0.9% 1000 ML** 1,000 ML IV SCH (08:08)
[2019-06-20] MEDS ORDERED: Albuterol/Ipratropium NEB.SOL* Albuterol 2.5 MG/Ipratropium 0.5 MG 3 ML INH PRN (08:14)
[2019-06-20 11:10] LABS: Digoxin 0.8 ng/ml (0.8-2.0)
[2019-06-20 11:24] LABS: TSH (Thyroid Stimulating Horm) 0.06 mcIU/mL (0.34-5.60)
--- NOTE | 2019-06-20 13:33 | HP ---
CC: Dr. Brooks; Dr. Santos * HISTORY AND PHYSICAL: DATE OF ADMISSION: 06/20/19 PRIMARY CARE PROVIDER: Dr. Brooks. MY ATTENDING PHYSICIAN WHILE IN THE HOSPITAL: Dr. Milligan * (report dictated by Dominga Askew NP). CONSULTING NEUROLOGIST: Dr. Santos. CHIEF COMPLAINT: Altered mental status. HISTORY OF PRESENT ILLNESS: Ms. Ortiz is a 63-year-old female patient with a history of stroke x2, aortic stenosis, Hodgkin's lymphoma, history of meningioma , hypertension, asthma, cardiomyopathy that was Takotsubo's, Sjogren's, CHF, the last reported echo showed an EF of 30% to 35%, gout, hypothyroidism, AFib, and borderline diabetes, who comes in today. The noted that around 2:30 , the patient was trying to get out of bed, she vomited x1 according to the reports, but he noted and he told me that she was staring, she had lost control of her urine. She had soiled herself. There were no reports of tongue biting. He seemed to believe that she became tense and right after this episode that lasted may be about 5 minutes, she was very confused. She could not really speak. He was concerned that she may have had a stroke. He gave her an extra 5 mg of apixaban. Her does report that prior to this she had been doing well. She had been in her normal state of health. She had diarrhea approximately a week ago that has since resolved. The patient's was awoken by hearing a thump and hearing some grunting as well. She had lost control again of diarrhea. He reports that her legs had just given out. En route to the hospital, it was reported that she vomited once. The patient returned to her baseline eventually. Per Telestroke, she was not recalling any of the events that had happened. There was concern for a possible TIA and we were asked to evaluate for admission. While the patient was in the ER, there was an episode around 7 o'clock where she, according to the , became stiff, started staring, tried to get out of the bed again, was shaking, it lasted perhaps a minute. He called for help. Nursing staff ran to his aid and noted that the patient seemed to be very confused and somnolent. There was concern because of the mental status change again that was noted in the ER and the ER attending had asked us to come and evaluate urgently. The patient was evaluated and again it was noted that she did appear to be staring off at times during my evaluation. Ativan was ordered and given along with 1 g of Keppra and the episode of staring, when I was in there, lasted approximately 30 seconds to 1 minute and there was concern for possible seizure, and because of this, we admitted the patient to the ICU. The family denied any recent fevers, no chest pain, no cough, no shortness of breath has been reported and no recent change in medications. It is noted that she takes the Eliquis once a day. PAST MEDICAL HISTORY: Significant for: 1. CVA x2. 2. Aortic stenosis. 3. Hodgkin's lymphoma. 4. Meningioma. 5. Hypertension. 6. Asthma. 7. Cardiomyopathy, 8. Sjogren's. 9. CHF. 10. Gout. 11. Hypothyroidism. 12. AFib. 13. Borderline diabetes. PAST SURGICAL HISTORY: She has had a D and C. MEDICATIONS: Home medications include: 1. Famotidine 40 mg daily. 2. Apixaban 5 mg daily. 3. Magnesium oxide 400 mg p.o. b.i.d. 4. Lipitor 10 mg daily. 5. Spironolactone 50 mg at bedtime. 6. Synthroid 175 mcg daily. 7. Digoxin 0.125 mg at bedtime. 8. Zebeta 10 mg at bedtime. 9. Allopurinol 100 mg at bedtime. ALLERGIES TO MEDICATIONS: Include ASPIRIN and PENICILLIN along with CARVEDILOL , CLARITHROMYCIN, DILTIAZEM, PROGESTERONE, PROPAFENONE, XARELTO, SPIRONOLACTONE , BACTRIM, AMIODARONE, ASPIRIN, LISINOPRIL and BENICAR. FAMILY HISTORY: Her mother had a TIA. Father's history is unknown. SOCIAL HISTORY: She does not smoke. She occasionally drinks alcohol. Surrogate decision maker is her . REVIEW OF SYSTEMS: There is no documented fever and denied having any significant weight change. There is no double vision. Denied having any ear discharge. No rhinorrhea. No sore throat. No thyroid enlargement. Denied any chest pain. There is no orthopnea. There is no nocturnal dyspnea. No abdominal pain. There was 1 episode of nausea and vomiting in the ambulance, an episode of diarrhea and of incontinence of stool. There was concern for a possible seizure-like activity. Review of 14 systems completed, all others negative. PHYSICAL EXAMINATION GENERAL: At this time, Mrs. Ortiz is a 63-year-old female patient. She is sitting in the ED stretcher. She again was noted to be staring off when I initially came to evaluate her. After treating her with Ativan and Keppra, she is noted to be somnolent, but she will respond to pain. She will follow very simple commands. VITAL SIGNS: Blood pressure 171/68 with a pulse of 78, respirations are 24, O2 sat 100%, temperature 97.5. HEENT: Head: Atraumatic and normocephalic. Eyes: EOMs are intact. Sclerae anicteric, not pale. Throat: Oral mucosa appears to be dry. No oropharyngeal erythema. NECK: Supple. LUNGS: Clear to auscultation bilaterally. No wheezes, rales, or rhonchi. HEART: Heart sounds S1 and S2. Irregularly irregular rate. No murmurs, rubs, or gallops. ABDOMEN: Soft, flat, nontender. Bowel sounds are present. EXTREMITIES: No peripheral edema. NEUROLOGIC: She will respond to pain. She will not say her name at this point. Pupils were equal and reactive. She withdraws all 4 extremities to pain. She will follow very simple commands such as opening and closing her hand only. She will not hold her arm up off the bed; she does not understand this command. She does not appear to be focal at this point. She will respond to visual confrontation and threat. She is unable to tell me the month, year, or place. She is basically nonverbal at this point. With pain, she will say Ow and again will withdraw all 4 extremities. SKIN: Intact. DIAGNOSTIC STUDIES/LAB DATA: WBC 13.1, RBC 4.36, hemoglobin 13.3, hematocrit 40, platelet count 278. INR 1.45. PTT 33.4. Sodium 137, potassium 3.9, chloride of 105, bicarb 25, BUN 12, creatinine 0.78, glucose 155, lactate 2.7, calcium 8.6, total bili 0.4, AST 19, ALT 12, alk phos 122, troponin 0.01, albumin 3.6, LDL 35. Urine was obtained; it was negative. She did have a chest x-ray obtained today, which showed cardiomegaly. No pleural effusions. Some mild pulmonary edema was noted. No infiltrates. She had a head CTA obtained as well, which showed, impression: No hemodynamically significant stenosis. No dissection or occlusion. Nodule in the lingula measuring 4.4 mm. Further evaluation with CT chest is recommended. CTA of the head, impression: No occlusion or significant stenosis. No aneurysm. Brain CT obtained showed multiple infarcts as described in detail above. There is clinically concern for acute infarct. Workup with MRI recommended. She underwent an EKG as well. It showed atrial fibrillation with a rate of 64. She did have some ST depression in V4, V5 and V6 along with V3, lead I and also lead II. When you review it to her previous EKG from 2016, it appears to be stable. Old medical records were reviewed. ASSESSMENT AND PLAN: Mrs. Ortiz is a 63-year-old female patient coming into the ER today with altered mental status. There was report that she was staring off. In addition to this, she was incontinent of stool. The patient in the ER was noted to have an episode per the where she was shaking and stared off, lasting about a minute. Nursing staff was alerted. By the time they got there, she did appear to be postictal per the nursing staff. When I evaluated the patient, she did have some staring off. I was concerned for seizure and gave her Ativan and subsequently thereafter, she is really only withdrawing to pain and she will follow very simple commands such as opening and closing her hand around the fingers. She will be admitted on an inpatient status for: 1. Altered mental status. My main concern here is that the patient may have suffered a seizure. She certainly has risk factors for it. I discussed the case with Dr. Santos. He will be seeing the patient. My plan will be to get an MRI of the brain with and without. I will also get an EEG. I have given her a gram of Keppra and they will do 500 mg twice a day. I have given her Ativan as well. Currently, we will get neuro checks every hour. I have placed her in the ICU. I did touch base with the tonsorial artist and also touched base with the nurse practitioner covering the ICU and they were in agreement. They will follow the patient. 2. History of cerebrovascular accident. Again, in the setting of possible new infarct, I would like to wait for the MRI before starting her Eliquis again. I would certainly get neuro checks. CTA was done. We will get an echo with bubble study and place her on telemetry. She does have atrial fibrillation and she only takes Eliquis at once a day. So, I think repeating an echo is important to make sure there is no thrombus. Frequent neuro checks are checked. I have checked an A1c and we will restart the Eliquis when it is safe. 3. Aortic stenosis. We are going to check an echocardiogram. 4. History of asthma. I have ordered p.r.n. DuoNebs. 5. History of atrial fibrillation. Again, in the setting of possible acute cerebrovascular accident, we will hold on restarting this. We will restart when able if safe. 6. Cardiomyopathy. She does not appear to be in any acute failure. At this point, we will diurese if needed. 7. Hypertension. I will allow for permissive hypertension. 8. Sjogren's. Continue with the current medical regimen. 9. Congestive heart failure. She does not appear to be in exacerbation. 10. Gout. We will restart allopurinol when able. 11. Hypothyroidism. I will check her TSH. We will continue Synthroid. 12. Borderline diabetes. She can follow this with her primary. 13. DVT prophylaxis. Again, I would hold on ordering any DVT prophylaxis. She did get an extra dose of Eliquis tonight, but I would like to await the MRI to restart her Eliquis. 14. Code status: Full code. 15. Fluids, electrolytes and nutrition: She is n.p.o. pending a bedside swallowing evaluation. TIME SPENT: Time spent on the admission which is critical care time was 90 minutes, greater than half the time was spent [id number] with the patient obtaining my history of physical; the other half time was spent going over the plan of care with the patient and implementing plan of care. I did discuss the plan of care with my attending, Dr. Milligan; he is in agreement. DOMINGA ASKEW, RONI [id number]/[facility] #: [id number] FREIDA
--- NOTE | 2019-06-20 15:27 | ECHO ---
*[facility] [place] [address] Fax #: [phone] Transthoracic Echocardiogram Patient: Alecia Ortiz : 1955 Study Date: 06/20/2019 Age: 63 Gender: F HR: 75 bpm Height: 60 in /152.4 cm BSA: 1.63 m^2 Weight: 144.7 lb /65.8 kg BMI: 28.3 kg/m^2 *Visual Merchandise Manager: * Charley Solano [facility] *Referring Physician: * Sae AskewReading Physician: * Mauro Moran MD Indications: TIA. History: Hodgkins lymphoma, carotid disease. Atrial fibrillation. Congestive heart failure. Aortic stenosis. Cerebrovascular accident. PMH: Cardiomyopathy. Risk factors: Hypertension. Conclusions Summary: - Left ventricle: Systolic function is normal. The estimated ejection fraction is 55-60%. Wall motion is normal; there are no regional wall motion abnormalities. - Right ventricle: Systolic function is normal. - Atrial septum: A PFO is not demonstrated by color Doppler or agitated saline contrast. Negative bubble study. - Mitral valve: The findings are consistent with mild stenosis. There is mild regurgitation. - Aortic valve: The findings are consistent with moderate stenosis. There is moderate regurgitation. The mean systolic gradient is 24.0 mm Hg. The valve area by the velocity-time integral method is 0.93 cm^2. The valve area by the peak velocity method is 1.01 cm^2. - Tricuspid valve: There is moderate-severe regurgitation. - Pulmonary arteries: Systolic pressure is severely increased. Estimated pulmonary artery systolic pressure is 65-70 mmHg. - Compared to study of 12/19/15, the left ventricle function is the same. The degree of and aortic regurgitation is slightly worse. Pulmonary hypertension is the same. Study data: Transthoracic echocardiogram. Procedure: Transthoracic echocardiography was performed. Image quality was adequate. A bubble study was performed. Complete 2D, spectral Doppler, and color flow Doppler. Location: ICU Patient status: Inpatient. Patient room number: 13. Rhythm: Atrial flutter. Findings Left ventricle: Wall thickness is mildly to moderately increased. Systolic function is normal. The estimated ejection fraction is 55-60%. Wall motion is normal; there are no regional wall motion abnormalities. Left ventricular diastolic function parameters are indeterminate. Right ventricle: The cavity size is normal. Systolic function is normal. Left atrium: The atrium is dilated. Right atrium: The atrium is dilated. Atrial septum: A PFO is not demonstrated by color Doppler or agitated saline contrast. Negative bubble study. Mitral valve: The Mitral valve annulus appears moderately calcified. The leaflets are moderately thickened. The findings are consistent with mild stenosis. There is mild regurgitation. Aortic valve: The annulus is mildly calcified. The valve is trileaflet. The leaflets are moderately thickened. The findings are consistent with moderate stenosis. There is moderate regurgitation. Tricuspid valve: The leaflets are normal thickness. There is no evidence of stenosis. There is moderate-severe regurgitation. Pulmonic valve: The leaflets are normal thickness. There is no evidence of stenosis. There is trace regurgitation. Aorta: The aortic root appears normal. The aortic arch appears normal. Pericardium: There is no significant pericardial effusion. Pulmonary arteries: Systolic pressure is severely increased. Systemic veins: Inferior vena cava: The vessel is dilated. There is (< 50%) respiratory change in the IVC dimension. Measurements Left ventricle Value Ref Aortic valve continued Value Ref LORENA, LAX (L) 3.7 cm 3.8 - 5.2 JAMES, VTI 0.93 cm^2 --------- ESD, LAX 2.3 cm 2.2 - 3.5 JAMES, Vmax 1.01 cm^2 --------- FS, LAX 38 % 27 - 45 AR peak v 4.61 m/sec --------- PW, ED, LAX (H) 1.3 cm 0.6 - 0.9 AR PHT 334 ms --------- E', lat jori, TDI (L) 6.3 cm/sec >=10.0 AR peak grad 85 mm Hg - -------- E/e', lat jori, 33 TDI Mitral valve Value Ref Peak E 2.08 m/sec --------- LVOT Value Ref Decel time 158 ms --------- Diam, S 1.90 cm PHT 82 ms --------- Area 2.8 cm^2 Mean grad, D 7.0 mm Hg --------- Peak jef, S 1.03 m/sec Peak grad, D 16.0 mm Hg --------- Mean grad, S 2 mm Hg MVA, PHT 2.7 cm^2 --------- SV 69 ml Pulmonic valve Value Ref Ventricular septum Value Ref Peak v, S 0.58 m/sec --------- IVS, ED (H) 1.2 cm 0.6 - 0.9 Peak grad, S 1.0 mm Hg --------- Right ventricle Value Ref Tricuspid valve Value Ref LORENA, LAX 2.6 cm TR peak v (H) 3.9 m/sec <=2.8 Pressure, S 69 mm Hg Peak RV-RA grad, 61 mm Hg --------- S Left atrium Value Ref AP dim, ES 3.80 cm 2.70 - Aortic root Value Ref 3.80 Root diam 2.5 cm <3.9 ML dim, A4C 3.9 cm Root max 1.5 cm/m^2 1.4 - 2.2 SI dim, A4C 5.4 cm diam/bsa, ED Vol/bsa, ES, A/L 30 ml/m^2 16 - 34 Ascending aorta Value Ref Right atrium Value Ref AAo AP diam, S 2.6 cm --------- SI dim, ES 4.9 cm 3.4 - 5.3 AAo AP diam/bsa, 1.6 cm/m^2 --------- ML dim, ES, A4C 4.4 cm 2.6 - 4.4 S Estimated RAP 8 mm Hg Decending aorta Value Ref Aortic valve Value Ref Anjelica peak jef 0.62 m/sec --------- Jori diam, ED 1.7 cm Peak v, S 2.91 m/sec Pulmonary artery Value Ref VTI, S 89.3 cm Pressure, S 68.0 mm Hg --------- Mean grad, S 24.0 mm Hg Peak grad, S 34.0 mm Hg Inferior vena cava Value Ref Diam 2.7 cm --------- Legend: (L) and (H) keila values outside specified reference range. Prepared and electronically signed by Mauro Moran MD 06/20/2019 15:27
[2019-06-20] MEDS ORDERED: Gadoteridol* (CONTRAST) 279.3 MG/ML 10 ML IV ONE (16:31)
--- NOTE | 2019-06-20 17:59 | PN ---
<Virginia Floyd - Last Filed: 06/20/19 17:10> Progress Note - Progress Note Date of Service: 06/20/19 Note: Progress Note -- Critical Care 24 hour events/significant events: - Admitted to ICU s/p 2-3 seizure-like episodes - Seizure workup is pending ROS: ROS unable to be obtained secondary to mental status change, likely post- ictal Tele: afib rate controlled Vitals: Vital Signs 06/20/19 06/20/19 06/20/19 03:30 03:32 03:34 Temperature 97.5 F Pulse Rate 89 79 Respiratory 28 21 36 Rate Blood Pressure 199/64 199/64 (mmHg) O2 Sat by Pulse 100 100 Oximetry 06/20/19 06/20/19 06/20/19 04:00 04:04 04:10 Temperature Pulse Rate 68 65 62 Respiratory 24 37 27 Rate Blood Pressure 162/59 150/51 (mmHg) O2 Sat by Pulse 99 100 100 Oximetry 06/20/19 06/20/19 06/20/19 04:15 04:20 04:25 Temperature Pulse Rate 74 72 70 Respiratory 21 24 21 Rate Blood Pressure 172/71 164/74 160/57 (mmHg) O2 Sat by Pulse 97 100 100 Oximetry 06/20/19 06/20/19 06/20/19 04:30 04:35 04:40 Temperature Pulse Rate 64 66 64 Respiratory 28 21 17 Rate Blood Pressure 171/70 161/54 144/44 (mmHg) O2 Sat by Pulse 100 100 100 Oximetry 06/20/19 06/20/19 06/20/19 04:45 04:50 04:55 Temperature Pulse Rate 57 67 58 Respiratory 20 22 26 Rate Blood Pressure 126/53 135/66 156/64 (mmHg) O2 Sat by Pulse 100 100 100 Oximetry 06/20/19 06/20/19 06/20/19 05:00 05:01 05:34 Temperature Pulse Rate 60 64 74 Respiratory 20 21 21 Rate Blood Pressure 148/46 156/59 (mmHg) O2 Sat by Pulse 100 100 95 Oximetry 06/20/19 06/20/19 06/20/19 06:00 06:04 06:34 Temperature Pulse Rate 62 64 92 Respiratory 14 14 20 Rate Blood Pressure 131/38 145/55 (mmHg) O2 Sat by Pulse 93 93 99 Oximetry 06/20/19 06/20/19 06/20/19 07:00 07:04 07:20 Temperature Pulse Rate 75 74 Respiratory 26 15 Rate Blood Pressure 138/58 (mmHg) O2 Sat by Pulse 100 100 Oximetry 06/20/19 06/20/19 06/20/19 07:34 08:00 08:51 Temperature Pulse Rate 79 72 82 Respiratory 24 19 25 Rate Blood Pressure 171/68 169/69 (mmHg) O2 Sat by Pulse 100 100 95 Oximetry 06/20/19 06/20/19 06/20/19 09:00 09:20 09:21 Temperature 97.8 F Pulse Rate 71 77 74 Respiratory 21 21 20 Rate Blood Pressure 166/68 166/68 (mmHg) O2 Sat by Pulse 92 90 95 Oximetry 06/20/19 06/20/19 06/20/19 09:40 10:00 11:00 Temperature 97.5 F Pulse Rate 75 85 80 Respiratory 18 19 23 Rate Blood Pressure 140/95 (mmHg) O2 Sat by Pulse 94 93 93 Oximetry 06/20/19 06/20/19 06/20/19 11:16 11:20 11:30 Temperature Pulse Rate 58 77 Respiratory 14 21 Rate Blood Pressure 93/67 136/70 (mmHg) O2 Sat by Pulse 96 95 Oximetry 06/20/19 06/20/19 06/20/19 11:40 11:46 12:00 Temperature 98.9 F Pulse Rate 75 74 Respiratory 23 24 Rate Blood Pressure 147/68 (mmHg) O2 Sat by Pulse 87 95 Oximetry 06/20/19 06/20/19 06/20/19 12:02 12:30 12:45 Temperature Pulse Rate 78 84 64 Respiratory 31 27 16 Rate Blood Pressure 146/53 160/81 159/58 (mmHg) O2 Sat by Pulse 97 95 95 Oximetry 06/20/19 06/20/19 06/20/19 12:52 13:00 13:01 Temperature Pulse Rate 67 78 Respiratory 18 34 35 Rate Blood Pressure 163/56 (mmHg) O2 Sat by Pulse 96 92 Oximetry 06/20/19 06/20/19 06/20/19 13:16 13:46 14:00 Temperature Pulse Rate 88 72 Respiratory 15 22 21 Rate Blood Pressure 171/154 (mmHg) O2 Sat by Pulse 81 94 Oximetry 06/20/19 06/20/19 06/20/19 14:52 15:00 16:00 Temperature 99.9 F Pulse Rate 74 79 Respiratory 16 17 19 Rate Blood Pressure 148/70 (mmHg) O2 Sat by Pulse 93 96 Oximetry Intake and Output Last 24 Hours 06/18/19 06/19/19 06/20/19 06/21/19 06:59 06:59 06:59 06:59 Intake Total 316 Output Total 550 Balance -234 Weight 145 lb 15.136 oz 145 lb 11.609 oz Intake: IV Fluids 316 NS (0.9%) 316 Oral 0 Output: Urine 550 Other: Date of Last Bowel 06/19/2019 Movement O2: RA Infusions: NS @ 75 Medications: Albuterol/Ipratropium (Duoneb (Albuterol 2.5 Mg/Ipratropium 0.5 Mg)) 1 neb INH Q4H PRN PRN Reason: SOB/WHEEZING Apixaban (Eliquis*) 5 mg PO BID [facility] Atorvastatin Calcium (Lipitor*) 40 mg PO 1700 [facility] Digoxin (Lanoxin Tab*) 0.125 mg PO BEDTIME [facility] Levetiracetam (Keppra Iv Premix*) 500 mg in 100 mls @ 400 mls/hr IV Q12H [facility] Sodium Chloride (Ns 0.9% 1000 Ml) 1,000 mls @ 75 mls/hr IV PER RATE [facility] Last Admin: 06/20/19 08:08 Dose: 75 mls/hr Levothyroxine Sodium (Synthroid Tab*) 175 mcg PO 0600 [facility] Physical Exam: Constitutional: lethargic but opens eyes spontaneously, unable to stay awake for long periods of time, no distress, no diaphoresis Head: normocephalic, atraumatic Eyes: no pallor, no icterus ENT: dry mucous membranes with some dried blood Neck: soft, supple CVS: irregular rate, regular, no murmur Chest/Resp: bilateral air entry, diminished throughout, no rhales, no wheeze, no rhonchi, no acc muscle use Abdomen/GI: soft, nontender, nondistended, BS+ Ext/Msk: warm, pulses+, no edema Skin: intact, warm Neuro: lethargic but opens eyes spontaneously, unable to stay awake for long periods of time. PERRL 3mm, EOMI. No facial droop, no facial anesthesia, moderate dysarthria, unable to answer orientation questions or assess for expressive aphasia. Follows commands. Able to squeeze eyes shut and lift eyebrows symmetrically with equal strength. Tongue is midline, swollen, moves side to side, unable to visualize uvula. Strength 5/5 LUE and LLE, 4/5 RUE and RLE. Pronator drift RUE. Unable to assess sensation in extremities at this time. Unable to perform finger to nose. Psych: flat affect Labs: Laboratory Results - last 24 hr 06/20/19 06/20/19 06/20/19 03:35 03:46 03:46 WBC 13.1 H RBC 4.36 Hgb 13.3 Hct 40 MCV 92 MCH 31 MCHC 33 RDW 15 Plt Count 278 MPV 8.8 Neut % (Auto) 72.0 Lymph % (Auto) 19.7 [place] % (Auto) 6.6 Eos % (Auto) 1.1 Baso % (Auto) 0.6 Absolute Neuts (auto) 9.4 H Absolute Lymphs (auto) 2.6 Absolute Monos (auto) 0.9 H Absolute Eos (auto) 0.1 Absolute Basos (auto) 0.1 Absolute Nucleated RBC 0.0 Nucleated RBC % 0.0 INR (Anticoag Therapy) 1.45 H APTT 33.4 Sodium Potassium Chloride Carbon Dioxide Anion Gap BUN Creatinine Est GFR ( Amer) Est GFR (Non-Af Amer) BUN/Creatinine Ratio Glucose POC Glucose (mg/dL) 167 H Hemoglobin A1c Lactic Acid Calcium Total Bilirubin AST ALT Alkaline Phosphatase Total Creatine Kinase Troponin I Total Protein Albumin Globulin Albumin/Globulin Ratio Triglycerides Cholesterol LDL Cholesterol HDL Cholesterol TSH Urine Color Urine Appearance Urine pH Ur Specific [place] Urine Protein Urine Ketones Urine Blood Urine Nitrate Urine Bilirubin Urine Urobilinogen Ur Leukocyte Esterase Urine Glucose Digoxin Blood Type Antibody Screen 06/20/19 06/20/19 06/20/19 03:46 03:46 03:46 WBC RBC Hgb Hct MCV MCH MCHC RDW Plt Count MPV Neut % (Auto) Lymph % (Auto) [place] % (Auto) Eos % (Auto) Baso % (Auto) Absolute Neuts (auto) Absolute Lymphs (auto) Absolute Monos (auto) Absolute Eos (auto) Absolute Basos (auto) Absolute Nucleated RBC Nucleated RBC % INR (Anticoag Therapy) APTT Sodium 137 Potassium 3.9 Chloride 105 Carbon Dioxide 25 Anion Gap 7 BUN 12 Creatinine 0.78 Est GFR ( Amer) 89.7 Est GFR (Non-Af Amer) 74.1 BUN/Creatinine Ratio 15.4 Glucose 155 H POC Glucose (mg/dL) Hemoglobin A1c Lactic Acid 2.7 H* Calcium 8.6 Total Bilirubin 0.40 AST 19 ALT 12 Alkaline Phosphatase 122 H Total Creatine Kinase 41 Troponin I 0.01 Total Protein 6.6 Albumin 3.6 Globulin 3.0 Albumin/Globulin Ratio 1.2 Triglycerides 99 Cholesterol 83 LDL Cholesterol 35 HDL Cholesterol 28.3 TSH Urine Color Urine Appearance Urine pH Ur Specific [place] Urine Protein Urine Ketones Urine Blood Urine Nitrate Urine Bilirubin Urine Urobilinogen Ur Leukocyte Esterase Urine Glucose Digoxin Blood Type A Positive Antibody Screen Negative 06/20/19 06/20/19 06/20/19 06:40 10:35 10:35 WBC RBC Hgb Hct MCV MCH MCHC RDW Plt Count MPV Neut % (Auto) Lymph % (Auto) [place] % (Auto) Eos % (Auto) Baso % (Auto) Absolute Neuts (auto) Absolute Lymphs (auto) Absolute Monos (auto) Absolute Eos (auto) Absolute Basos (auto) Absolute Nucleated RBC Nucleated RBC % INR (Anticoag Therapy) APTT Sodium Potassium Chloride Carbon Dioxide Anion Gap BUN Creatinine Est GFR ( Amer) Est GFR (Non- Amer) BUN/Creatinine Ratio Glucose POC Glucose (mg/dL) Hemoglobin A1c 6.3 H Lactic Acid Calcium Total Bilirubin AST ALT Alkaline Phosphatase Total Creatine Kinase Cancelled Troponin I Total Protein Albumin Globulin Albumin/Globulin Ratio Triglycerides Cancelled Cholesterol Cancelled LDL Cholesterol Cancelled HDL Cholesterol Cancelled TSH 0.06 L Urine Color Yellow Urine Appearance Clear Urine pH 5.0 Ur Specific [place] Urine Protein Negative Urine Ketones Negative Urine Blood Negative Urine Nitrate Negative Urine Bilirubin Negative Urine Urobilinogen Negative Ur Leukocyte Esterase Negative Urine Glucose Negative Digoxin 0.8 Blood Type Antibody Screen 06/20/19 10:35 WBC RBC Hgb Hct MCV MCH MCHC RDW Plt Count MPV Neut % (Auto) Lymph % (Auto) [place] % (Auto) Eos % (Auto) Baso % (Auto) Absolute Neuts (auto) Absolute Lymphs (auto) Absolute Monos (auto) Absolute Eos (auto) Absolute Basos (auto) Absolute Nucleated RBC Nucleated RBC % INR (Anticoag Therapy) APTT Sodium Potassium Chloride Carbon Dioxide Anion Gap BUN Creatinine Est GFR ( Amer) Est GFR (Non-Af Amer) BUN/Creatinine Ratio Glucose POC Glucose (mg/dL) Hemoglobin A1c Lactic Acid 1.2 Calcium Total Bilirubin AST ALT Alkaline Phosphatase Total Creatine Kinase Troponin I Total Protein Albumin Globulin Albumin/Globulin Ratio Triglycerides Cholesterol LDL Cholesterol HDL Cholesterol TSH Urine Color Urine Appearance Urine pH Ur Specific [place] Urine Protein Urine Ketones Urine Blood Urine Nitrate Urine Bilirubin Urine Urobilinogen Ur Leukocyte Esterase Urine Glucose Digoxin Blood Type Antibody Screen Imaging: Echo 06/19: EF 55-60%, moderate aortic stenosis, pulmonary hypertension CTA head: no sig findings CTH: Encephalomalacia left occipital lobe, left insular cortex, left basal ganglia. No acute changes Assessment: 63F with history of LMCA stroke with unclear deficits, Hodgkin's lymphoma, meningioma, HTN, asthma, takotsubos, CHF, afib, presents on 06/19 after she was trying to get OOB ~230am, appeared weaker, staring blankly, and had both bladder and bowel incontinence. There is a question of 1 or 2 episodes at home. witnessed another episode in ED, stiffening of extremities, staring, tremors lasting about 1 minute. Episode was over by time nursing got there. She was admitted for seizure workup and transferred to ICU for close monitoring - New onset seizure like activity - Afib - CVA - CHF Plan: Neuro- - Left MCA and [employer] encephalomalacia: these episodes are very likely seizures as a consequence of chronic infarcts. Continue eliquis once patient can take PO - New onset seizure like activity: convincing for seizures. MRI w/wo pending, continue keppra 500mgBID. EEG pending. -Delirium prec; avoid BDZ CVS- -Maintain MAP>65 as long as SBP<160 - Afib: chronic. Rate controlled. Continue eliquis 5mg BID Resp- - No active issues -Wean Fio2 to keep sat>92% - Aspiration prec, Pulmonary Toilet ID- - No active issues - Goal temp<101 GI- -Nutrition: NPO until more awake. Bedside swallow eval when able. Start diet if appropriate -GI prophylaxis not indicated Renal- -strict I/O, replete to keep K>4, Mg>2 -holder as indicated Heme- - No active issues - SCDs for DVT prophylaxis. restart eliquis as soon as possible Endo-Maintain BG<200, insulin protocol as needed Musculsk- pressure ulcer prophylaxis. Bedrest. Wounds- none Nutrition- NPO DVT prophylaxis:SCDs GI prophylaxis: not indicated Disposition: Patient was kept in ICU for close monitoring since it appeared as though patient had 2-3 seizures in a short amount of time. Throughout the day, patient remains post ictal but improving. She will be transferred to the floor. Patient clinical status: stable Code Status: full <James Milligan - Last Filed: 06/20/19 19:21> Progress Note - Progress Note Note: 63F with history of LMCA stroke with unclear deficits, Hodgkin's lymphoma, meningioma, HTN, asthma, takotsubos, CHF, afib; admitted for possible seizure episode at home (findings of blank stare, weakness, incontinence of bowel and bladder), then another episode of tremors/shaking, staring in ER but staff arrived and she was post ictal? Loaded with keppra in ER. CT brain negative. MRI brain done today negative for acute fidnings, notedprevious Left MCA chronic infarction. TTE with no overt valvular abn, no pfo, LV/RV fxn normal, dilated RA/LA. she is more awake today, has baseline dysarthria moderate+, right LE weakness, able to lift leg but for <5 sec, left leg normal. likely to be post ictal but improving today. Neuro has been following. EEG pending read. plan was to continue keppra. no clear clots noted anywhere on TTE. she is to continue apixiban for Afib. During the day, no further seizure episodes noted. will transfer to telemetry with seizure precautions and continued neuro checks. I agree with plan with TWISTHAND as above.
[2019-06-20] MEDS: levETIRAcetam 500 MG IVPREMIX* 500 MG/100 ML BAG IV SCH (18:11)
[2019-06-20] MEDS: Atorvastatin* 40 MG TAB PO SCH (18:12)
--- NOTE | 2019-06-20 20:09 | CONS ---
CONSULTATION REPORT: DATE OF CONSULT: 06/20/19 PATIENT OF: Dr. Milligan and Sae Askew NP REASON FOR CONSULT: This is a 63-year-old woman who I am asked to evaluate for possible seizure. SOURCE OF INFORMATION: History is from Dr. Milligan, the ER notes. Sae Askew' s note is not in the chart. HISTORY OF PRESENT ILLNESS: She is a 63-year-old woman who had a stroke following a large vessel occlusion 3 years ago and also has atrial fibrillation , Hodgkin's lymphoma, congestive heart failure, hypertension, and cardiomyopathy , who developed a possible seizure at around 2:30 versus an acute change in neurological status that could have been another stroke. She was brought into the emergency room. When in the emergency room, she had an episode of shaking and stiffness according to Sae Askew NP. It was witnessed by the family. She received Ativan and was loaded with Keppra in the ER and had no further events. Initial NIH Stroke Scale was 5, but it was unclear whether how much change this was from her baseline. Of note, I had seen her back in 2016 for the stroke where she had the LVO. Her is not here to tell us how different she is. Apparently, she is doing a little better than she was after her event in the ER. PAST MEDICAL HISTORY: Other medical problems include pulmonary hypertension, type 2 diabetes, cardiomyopathy, meningioma, aortic valve stenosis, chronic atrial fib, takotsubo cardiomyopathy, hysterectomy, hypertension, hypothyroidism , asthma, thoracic spinal stenosis, Sjogren's syndrome, Hodgkin's disease. MEDICATIONS AT HOME: Include: 1. Allopurinol 100 mg at bedtime. 2. Zebeta 10 mg at bedtime. 3. Digoxin 0.125 at bedtime. 4. Synthroid 175 mcg a day. 5. Aldactone 50 mg daily. 6. Lipitor 10 mg daily. 7. Mag oxide 400 b.i.d. 8. Eliquis 5 mg daily. 9. Famotidine 40 mg daily. ALLERGIES: She is allergic to LISINOPRIL, OLMESARTAN, ASPIRIN, AMIODARONE, BACTRIM, SPIRONOLACTONE, RIVAROXABAN, PROPAFENONE, PROGESTERONE, PENICILLINS, ESTROGENS, DILTIAZEM, CLARITHROMYCIN, CARVEDILOL. FAMILY HISTORY: Unable to be obtained at this point. SOCIAL HISTORY: She does not smoke or drink. PHYSICAL EXAM: Temperature 98.9, pulse 83, respirations 23, blood pressure 147/ 67. She was sleeping, but arousable. She knew her name and could answer some yes/no questions and follow some commands, but not consistently. She had limited speech at this point. She had a mild right facial droop and mild right hemiparesis, with at least 4/5 strength, but she was not directly cooperative with the exam. She is not cooperative with sensory exam or visual field testing. Chest: Clear. Cardiovascular: Irregular rate and rhythm. Abdomen is soft with positive bowel sounds. DIAGNOSTIC STUDIES/LAB DATA: Her CAT scan I reviewed and shows the area of old infarct in both left temporal and left occipital areas with encephalomalacia. Her CTA showed no significant stenosis, occlusion, or dissection. She has a nodule in her lung as noted. Blood work included normal CBC other than white count of 13.1. INR 1.45, PTT 33. Chemistries significant for a hemoglobin A1c of 6.3, glucose of 155, lactic acid 2.7. Normal liver function tests, CPK. LDL was 35. TSH was 0.06. UA was negative. Toxicology: Digoxin 0.8. She had an EEG, which showed slowing including more prominently on the left side with some sharply contoured slow waves. IMPRESSION AND PLAN: Alecia's history is little murky. As best I can tell, she had a seizure in the ER and possibly a seizure at night and that these might be seizures following her prior stroke. It is possible that she has had another stroke and she will need an MRI scan to see if there is anything that is subacute. She does not need any acute intervention. She has no large vessel occlusion. She was not a tPA candidate. If she has an acute stroke, we will have to assess whether she would need to be on long-term anticonvulsant, but assuming that this is just seizures that are happening presumably from old stroke, then she would need to be continued on therapeutic Keppra on an ongoing basis. It is most likely that the alteration she has from her baseline may be secondary to being postictal at this point, but it is possible that she could have had another stroke in addition to the seizures. Thank you for sharing her case. [id number]/[facility] #: [id number] FREIDA
[2019-06-20] MEDS: Apixaban* 5 MG TAB PO SCH (22:50)
[2019-06-20] MEDS: Digoxin TAB* 0.125 MG PO SCH (22:50)
--- NOTE | 2019-06-21 05:05 | EEG ---
ELECTROENCEPHALOGRAPHY: DATE OF STUDY: 06/20/19 - ROOM #418 PATIENT OF: Dr. Askew. CLINICAL PROBLEM: This is a 63-year-old woman being evaluated for new onset of seizures with aphasia. She has had past history of stroke. MEDICATIONS: Include: 1. Mag oxide. 2. Famotidine. 3. Digoxin. 4. Eliquis. 5. Allopurinol. 6. Spironolactone. 7. Levothyroxine. 8. She received Zofran and Keppra in the ER. The Keppra has been given as the EEG was being done. REPORT: With the patient awake, background cerebral activity consists of admixed moderate amplitude posterior dominant 7 to 8 Hz rhythm with some left temporal sharply contoured waves occurring on occasion and some more prominent slowing in the left than the right. No clear cut epileptiform potentials were noted. The never patient falls asleep. CLINICAL IMPRESSION: This awake EEG is abnormal for mild slowing of background, perhaps left-sided predominance with some sharply contoured activity at that side. This EEG is consistent with patient being postictal or having encephalopathy, worse on the left with some suggestion that potential seizure could have risen on the left side. [id number]/[facility] #: [id number] [facility]
[2019-06-21 05:10] LABS: ABS Basophils 0.1 10^3/ul (0-0.2); ABS Eosinophils 0.1 10^3/ul (0-0.6); ABS Lymphocytes 2.6 10^3/ul (1.0-4.8); ABS Monocytes 0.9 10^3/ul (0-0.8); ABS Neutrophils 9.3 10^3/ul (1.5-7.7); Eosinophil % 0.5 %; Hematocrit 38 % (35-47); Hemoglobin 12.4 g/dL (12.0-16.0); Lymphocyte % 20.1 %; Mean Corpuscular HGB Conc 33 g/dL (31-36); Mean Corpuscular Hemoglobin 30 pg (27-31); Mean Corpuscular Volume 92 fL (80-97); Mean Platelet Volume 8.7 fL (7.4-10.4); Platelet Count 266 10^3/uL (150-450); Red Blood Count 4.09 10^6 /uL (3.70-4.87); Red Cell Distribution Width 15 % (10-15); White Blood Count 12.9 10^3/uL (3.5-10.8)
[2019-06-21 05:21] LABS: INR 1.36 (0.82-1.09)
[2019-06-21 05:28] LABS: BUN/Creatinine Ratio 13.3 (8-20); EGFR African American 93.8 (>60); EGFR Non-African American 77.6 (>60); Potassium 3.7 mmol/L (3.5-5.0)
[2019-06-21] MEDS: levETIRAcetam 500 MG IVPREMIX* 500 MG/100 ML BAG IV SCH ×2 (05:38→17:08)
[2019-06-21] MEDS: Levothyroxine TAB* 175 MCG TAB PO SCH (05:39)
[2019-06-21] MEDS: Apixaban* 5 MG TAB PO SCH ×2 (11:02→22:06)
[2019-06-21] MEDS ORDERED: Benzocaine/Menthol LOZ* 1 LOZENGE PO PRN (14:40)
[2019-06-21] MEDS: NS 0.9% 1000 ML** 1,000 ML IV SCH (17:02)
[2019-06-21] MEDS: Atorvastatin* 40 MG TAB PO SCH (17:08)
--- NOTE | 2019-06-21 18:47 | PN ---
Subjective Date of Service: 06/21/19 Interval History: Patient seen, awake, oriented to person and place but not to time, she seems slow to respond but she is able Follow command and she is taking po well. no acute concerns overnight. transferred out of the ICU 06/20/19 seen this morning as initial encounter. Resting in bed, follow command appropriately. She did have sore throat provided cough lozenges with some relief Past Medical History: Unchanged from Admission Objective Active Medications: Albuterol/Ipratropium (Duoneb (Albuterol 2.5 Mg/Ipratropium 0.5 Mg)) 1 neb INH Q4H PRN PRN Reason: SOB/WHEEZING Apixaban (Eliquis*) 5 mg PO BID [facility] Last Admin: 06/21/19 11:02 Dose: 5 mg Atorvastatin Calcium (Lipitor*) 40 mg PO 1700 [facility] Last Admin: 06/21/19 17:08 Dose: 40 mg Digoxin (Lanoxin Tab*) 0.125 mg PO BEDTIME [facility] Last Admin: 06/20/19 22:50 Dose: Not Given Levetiracetam (Keppra Iv Premix*) 500 mg in 100 mls @ 400 mls/hr IV Q12H [facility] Last Admin: 06/21/19 17:08 Dose: 400 mls/hr Sodium Chloride (Ns 0.9% 1000 Ml) 1,000 mls @ 75 mls/hr IV PER RATE [facility] Last Admin: 06/21/19 17:02 Dose: 75 mls/hr Levothyroxine Sodium (Synthroid Tab*) 175 mcg PO 0600 [facility] Last Admin: 06/21/19 05:39 Dose: Not Given Throat Lozenges (Chloraseptic Amari*) 1 amari PO Q6H PRN PRN Reason: SORE THROAT Vital Signs - 8 hr 06/21/19 15:17 Temperature 98.3 F Pulse Rate 94 Respiratory 24 Rate Blood Pressure 130/57 (mmHg) O2 Sat by Pulse 98 Oximetry Oxygen Devices in Use Now: None Appearance: awake, alert. no distress Eyes: No Scleral Icterus, - - EOMI Ears/Nose/Mouth/Throat: Clear Oropharnyx, Mucous Membranes Moist Neck: NL Appearance and Movements; NL JVP, Trachea Midline Respiratory: - - bibasilar crakles. LIONEL rhonchi Cardiovascular: NL Sounds; No Murmurs; No JVD, - - irregularly irregular, rate controlled no murmur Abdominal: NL Sounds; No Tenderness; No Distention Extremities: No Edema Skin: No Rash or Ulcers Neurological: Alert and Oriented x 3 Result Diagrams: 06/21/19 04:58 06/21/19 04:58 Microbiology and Other Data: Microbiology 06/21/19 12:15 Stool Lactoferrin - Final Stool 06/21/19 12:15 Stool Gross Appearance - Final Stool 06/20/19 08:00 Aerobic Blood Culture - Preliminary Blood Venous No Growth Day 1 Anaerobic Blood Culture - Preliminary No Growth Day 1 06/20/19 09:54 Nasal Screen MRSA (PCR) - Final Nasal Mrsa Not Detected Assess/Plan/Problems-Billing Assessment: - Patient Problems (1) Encephalopathy acute Current Visit: Yes Status: Acute Code(s): G93.40 - ENCEPHALOPATHY, UNSPECIFIED SNOMED Code(s): 62260673 Comment: - Etiology seems to be related to seizure activity on admission related to her old CVA - Neuro input appreciated from 06/20/19. awaiting further recs. - currently more aware as compared to her admission. She is able to follow command and tolerating po. I am not sure if this is her baseline. - She is on keppra 500 mg IV bid. Will change to po now that she is taking PO. (2) Seizure Current Visit: Yes Status: Acute Code(s): R56.9 - UNSPECIFIED CONVULSIONS SNOMED Code(s): 57367490 Comment: - new onset - Etiology seems to be related to seizure activity on admission related to her old CVA - Neuro input appreciated from 06/20/19. awaiting further recs. - currently more aware as compared to her admission. She is able to follow command and tolerating po. I am not sure if this is her baseline. - She is on keppra 500 mg IV bid. Will change to po now that she is taking PO. (3) Atrial fibrillation Current Visit: Yes Status: Acute Code(s): I48.91 - UNSPECIFIED ATRIAL FIBRILLATION SNOMED Code(s): 63301515 Comment: - Chronic - Rate controlled - Continue abixaban 5 mg bid and digoxin 125 mcg daily (4) Hypothyroidism Current Visit: No Status: Acute Code(s): E03.9 - HYPOTHYROIDISM, UNSPECIFIED SNOMED Code(s): 90371960 Comment: - On levoxyl 175 mcg daily - check TSH in am (5) CVA (cerebral vascular accident) Current Visit: No Status: Chronic Code(s): I63.9 - CEREBRAL INFARCTION, UNSPECIFIED SNOMED Code(s): 535563738 (6) Hodgkins lymphoma Current Visit: No Status: Chronic Code(s): C81.90 - HODGKIN LYMPHOMA, UNSPECIFIED, UNSPECIFIED SITE SNOMED Code(s): 947443006 (7) Hypertension Current Visit: No Status: Chronic Code(s): I10 - ESSENTIAL (PRIMARY) HYPERTENSION SNOMED Code(s): 57257367 Comment: SBP 98-127/DBP 33-42. Decrease bisoprolol to 5 mg. (8) DVT prophylaxis Current Visit: No Status: Acute Code(s): IQT2046 - SNOMED Code(s): 833775925 Comment: - on Abixiban (9) Aortic stenosis Current Visit: Yes Status: Acute Code(s): I35.0 - NONRHEUMATIC AORTIC (VALVE ) STENOSIS SNOMED Code(s): 43769547 Comment: - Echo 06/20/19 moderate . EF 55%. (10) Mitral regurgitation Current Visit: Yes Status: Acute Comment: - Echo 06/20/19 moderate . EF 55 %. (11) Pulmonary hypertension Current Visit: Yes Status: Acute Code(s): I27.20 - PULMONARY HYPERTENSION, UNSPECIFIED SNOMED Code(s): 25179295 Comment: - Echo 06/20/19 moderate . EF 55%. PA 75 mmhg same as 2016 echo - Anticoagulated. - may benefit for referral for pulmonary hypertension if compliant
[2019-06-21] MEDS: Digoxin TAB* 0.125 MG PO SCH (22:07)
[2019-06-22] MEDS: Levothyroxine TAB* 175 MCG TAB PO SCH (05:50)
[2019-06-22] MEDS: levETIRAcetam TAB* 500 MG PO SCH ×2 (05:50→17:27)
[2019-06-22 06:46] LABS: ABS Basophils 0.1 10^3/ul (0-0.2); ABS Eosinophils 0.3 10^3/ul (0-0.6); ABS Lymphocytes 2.6 10^3/ul (1.0-4.8); ABS Neutrophils 8.4 10^3/ul (1.5-7.7); Eosinophil % 2.3 %; Hematocrit 39 % (35-47); Hemoglobin 13.1 g/dL (12.0-16.0); Lymphocyte % 20.7 %; Mean Corpuscular HGB Conc 34 g/dL (31-36); Mean Corpuscular Hemoglobin 31 pg (27-31); Mean Corpuscular Volume 91 fL (80-97); Mean Platelet Volume 9.1 fL (7.4-10.4); Nucleated Red Blood Cells % 0.1; Platelet Count 280 10^3/uL (150-450); Red Blood Count 4.31 10^6 /uL (3.70-4.87); Red Cell Distribution Width 15 % (10-15); White Blood Count 12.3 10^3/uL (3.5-10.8)
[2019-06-22 06:54] LABS: BUN/Creatinine Ratio 13.7 (8-20); Calcium 8.5 mg/dL (8.6-10.3); EGFR African American 96.8 (>60); Magnesium 1.5 mg/dL (1.9-2.7); Phosphorus 2.6 mg/dL (2.5-5.0)
[2019-06-22 07:22] LABS: TSH (Thyroid Stimulating Horm) 0.38 mcIU/mL (0.34-5.60)
[2019-06-22] MEDS: Apixaban* 5 MG TAB PO SCH ×2 (09:35→21:14)
[2019-06-22] MEDS: Atorvastatin* 40 MG TAB PO SCH (17:27)
--- NOTE | 2019-06-22 18:26 | PN ---
Subjective Date of Service: 06/22/19 Interval History: Pt is feeling well. Her thinks she is very close to baseline in terms of her mental status. He thinks she is walking pretty good. Objective Active Medications: Albuterol/Ipratropium (Duoneb (Albuterol 2.5 Mg/Ipratropium 0.5 Mg)) 1 neb INH Q4H PRN PRN Reason: SOB/WHEEZING Apixaban (Eliquis*) 5 mg PO BID [facility] Last Admin: 06/22/19 09:35 Dose: 5 mg Atorvastatin Calcium (Lipitor*) 40 mg PO 1700 [facility] Last Admin: 06/22/19 17:27 Dose: 40 mg Digoxin (Lanoxin Tab*) 0.125 mg PO BEDTIME [facility] Last Admin: 06/21/19 22:07 Dose: 0.125 mg Levetiracetam (Keppra Tab*) 500 mg PO Q12H [facility] Last Admin: 06/22/19 17:27 Dose: 500 mg Levothyroxine Sodium (Synthroid Tab*) 175 mcg PO 0600 [facility] Last Admin: 06/22/19 05:50 Dose: 175 mcg Throat Lozenges (Chloraseptic Amari*) 1 amari PO Q6H PRN PRN Reason: SORE THROAT Last Admin: 06/22/19 09:39 Dose: 1 amari Vital Signs - 8 hr 06/22/19 06/22/19 12:00 16:00 Temperature 98 F 98 F Pulse Rate 54 82 Respiratory 18 24 Rate Blood Pressure 152/54 151/71 (mmHg) O2 Sat by Pulse 98 99 Oximetry Oxygen Devices in Use Now: None Appearance: Middle aged female sitting up on the edge of the bed, NAD Eyes: No Scleral Icterus Ears/Nose/Mouth/Throat: Mucous Membranes Moist Respiratory: Symmetrical Chest Expansion and Respiratory Effort, Clear to Auscultation Cardiovascular: NL Sounds; No Murmurs; No JVD, RRR, No Edema Abdominal: NL Sounds; No Tenderness; No Distention Extremities: No Clubbing, Cyanosis Skin: No Nodules or Sclerosis Neurological: - - alert, oriented to place, can not tell me the date but tells me her birthday, does not remember why she is in the hospital Result Diagrams: 06/22/19 06:17 06/22/19 06:17 Microbiology and Other Data: Microbiology 06/21/19 12:15 Stool Lactoferrin - Final Stool 06/21/19 12:15 Stool Gross Appearance - Final Stool 06/20/19 08:00 Aerobic Blood Culture - Preliminary Blood Venous No Growth Day 1 Anaerobic Blood Culture - Preliminary No Growth Day 1 06/20/19 09:54 Nasal Screen MRSA (PCR) - Final Nasal Mrsa Not Detected Assess/Plan/Problems-Billing Ms Ortiz is a 63yoF who has a h/o past CVA with mild cognitive impairment, HTN, afib, CHF and Hodgkins lymphoma who presented to the ER with c/o AMS and was found to be having seizures. - Patient Problems (1) Seizure Current Visit: Yes Status: Acute Code(s): R56.9 - UNSPECIFIED CONVULSIONS SNOMED Code(s): 28755423 Comment: New onset seizures likely precipitated from her past CVA. Continue keppra 500mg BID. Likely home tomorrow. Will need to follow up with Dr. Santos as an outpatient. (2) Encephalopathy acute Current Visit: Yes Status: Acute Code(s): G93.40 - ENCEPHALOPATHY, UNSPECIFIED SNOMED Code(s): 99327919 Comment: Pt is now back to baseline mental status. (3) Systolic CHF Current Visit: Yes Status: Acute Code(s): I50.20 - UNSPECIFIED SYSTOLIC ( CONGESTIVE) HEART FAILURE SNOMED Code(s): 30379998 Comment: Weight decreased from 154 to 147 after good response to IV Lasix yesterday. Continue torsemide. Continue I/O and daily weights. Echocardiogram shows EF 30-35% with moderate to severe MR. (4) Atrial fibrillation Current Visit: Yes Status: Acute Code(s): I48.91 - UNSPECIFIED ATRIAL FIBRILLATION SNOMED Code(s): 35735182 Comment: HR is controlled. Continue digoxin and eliquis. (5) Hypothyroidism Current Visit: Yes Status: Acute Code(s): E03.9 - HYPOTHYROIDISM, UNSPECIFIED SNOMED Code(s): 09677537 Comment: TSH is low normal. Continue current dose of synthroid. (6) CVA (cerebral vascular accident) Current Visit: Yes Status: Chronic Code(s): I63.9 - CEREBRAL INFARCTION, UNSPECIFIED SNOMED Code(s): 255556947 Comment: Past L MCA territory infarct. Continue eliquis. (7) DVT prophylaxis Current Visit: Yes Status: Acute Code(s): BXX1577 - SNOMED Code(s): 774072965 Comment: melony (8) Full code status Current Visit: Yes Status: Acute Code(s): Z78.9 - OTHER SPECIFIED HEALTH STATUS SNOMED Code(s): 920166112
[2019-06-22] MEDS: Digoxin TAB* 0.125 MG PO SCH (21:14)
--- NOTE | 2019-06-22 22:47 | PN ---
NEUROLOGICAL FOLLOWUP: DATE OF SERVICE: 06/22/19 PATIENT OF: Dr. Guy. HISTORY: This is a neurological followup on this 63-year-old woman being seen for her new onset of seizures. She has had no further seizures. She has had some mild cough and sore throat. She continues to be on her Keppra 500 twice a day and her other medicines including her Eliquis, Lipitor, albuterol, levothyroxine. She has no other complaints. PHYSICAL EXAMINATION: Vital Signs: When seen includes temperature 98.6, pulse 96, respirations 20, blood pressure 153/55. She was alert and oriented x2. Cranial nerves II through XII were intact. Strength was symmetric. Chest: Clear. Cardiovascular: Regular rate and rhythm. Abdomen: Soft with positive bowel sounds. DIAGNOSTIC STUDIES/LAB DATA: Her MRI scan was reviewed and did not show any acute new stroke, but the old stroke was noted. ASSESSMENT AND PLAN: I think, Alecia most likely had new onset of seizures secondary to her prior stroke and she should continue on the Keppra and followup can be either through her primary. Thank you for sharing her case. [id number]/[facility] #: [id number] FREIDA
[2019-06-23] MEDS: Levothyroxine TAB* 175 MCG TAB PO SCH (05:46)
[2019-06-23] MEDS: levETIRAcetam TAB* 500 MG PO SCH ×2 (05:46→17:51)
[2019-06-23] MEDS ORDERED: Magnesium Sulfate 2 GM IV* 2 GM/50 ML BAG IVPB ONE (08:31)
[2019-06-23] MEDS: Apixaban* 5 MG TAB PO SCH (09:02)
--- NOTE | 2019-06-23 12:43 | PN ---
Subjective Date of Service: 06/23/19 Interval History: Patient seen today, doing well. Awake alert. disoriented to place and person. Cleared for discharge back home. no acute events. tolerating po diet well Past Medical History: Unchanged from Admission Objective Active Medications: Albuterol/Ipratropium (Duoneb (Albuterol 2.5 Mg/Ipratropium 0.5 Mg)) 1 neb INH Q4H PRN PRN Reason: SOB/WHEEZING Apixaban (Eliquis*) 5 mg PO BID [facility] Last Admin: 06/23/19 09:02 Dose: 5 mg Atorvastatin Calcium (Lipitor*) 40 mg PO 1700 [facility] Last Admin: 06/22/19 17:27 Dose: 40 mg Digoxin (Lanoxin Tab*) 0.125 mg PO BEDTIME [facility] Last Admin: 06/22/19 21:14 Dose: 0.125 mg Levetiracetam (Keppra Tab*) 500 mg PO Q12H [facility] Last Admin: 06/23/19 05:46 Dose: 500 mg Levothyroxine Sodium (Synthroid Tab*) 175 mcg PO 0600 [facility] Last Admin: 06/23/19 05:46 Dose: 175 mcg Throat Lozenges (Chloraseptic Amari*) 1 amari PO Q6H PRN PRN Reason: SORE THROAT Last Admin: 06/22/19 09:39 Dose: 1 amari Vital Signs - 8 hr 06/23/19 06/23/19 08:00 10:40 Temperature 98.3 F 97.7 F Pulse Rate 90 92 Respiratory 18 18 Rate Blood Pressure 145/42 156/42 (mmHg) O2 Sat by Pulse 94 98 Oximetry Oxygen Devices in Use Now: None Appearance: awake, alert no acute distress. Eyes: No Scleral Icterus, - - EOMI Ears/Nose/Mouth/Throat: NL Teeth, Lips, Gums, Clear Oropharnyx, Mucous Membranes Moist Neck: NL Appearance and Movements; NL JVP, Trachea Midline Respiratory: Symmetrical Chest Expansion and Respiratory Effort, Clear to Auscultation Cardiovascular: No Edema Abdominal: NL Sounds; No Tenderness; No Distention Result Diagrams: 06/22/19 06:17 06/22/19 06:17 Microbiology and Other Data: Microbiology 06/21/19 12:15 Stool Lactoferrin - Final Stool 06/21/19 12:15 Stool Gross Appearance - Final Stool 06/20/19 08:00 Aerobic Blood Culture - Preliminary Blood Venous No Growth Day 1 Anaerobic Blood Culture - Preliminary No Growth Day 1 06/20/19 09:54 Nasal Screen MRSA (PCR) - Final Nasal Mrsa Not Detected Assess/Plan/Problems-Billing Ms Ortiz is a 63yoF who has a h/o past CVA with mild cognitive impairment, HTN, afib, CHF and Hodgkins lymphoma who presented to the ER with c/o AMS and was found to be having seizures. - Patient Problems (1) Encephalopathy acute Current Visit: Yes Status: Acute Code(s): G93.40 - ENCEPHALOPATHY, UNSPECIFIED SNOMED Code(s): 85056684 Comment: - Etiology seems to be related to seizure activity on admission related to her old CVA - Neuro input appreciated from 06/20/19. - She is on keppra 500 mg PO bid (2) Seizure Current Visit: Yes Status: Acute Code(s): R56.9 - UNSPECIFIED CONVULSIONS SNOMED Code(s): 25954845 Comment: - New onset seizures likely precipitated from her past CVA. - Continue keppra 500mg BID. - Follow up with Dr. Santos as an outpatient. (3) Atrial fibrillation Current Visit: Yes Status: Acute Code(s): I48.91 - UNSPECIFIED ATRIAL FIBRILLATION SNOMED Code(s): 37855681 Comment: HR is controlled. Continue digoxin and eliquis. (4) Hypothyroidism Current Visit: Yes Status: Acute Code(s): E03.9 - HYPOTHYROIDISM, UNSPECIFIED SNOMED Code(s): 40617162 Comment: TSH is low normal. Continue current dose of synthroid. (5) CVA (cerebral vascular accident) Current Visit: Yes Status: Chronic Code(s): I63.9 - CEREBRAL INFARCTION, UNSPECIFIED SNOMED Code(s): 897822141 Comment: Past L MCA territory infarct. Continue eliquis. (6) Hodgkins lymphoma Current Visit: No Status: Chronic Code(s): C81.90 - HODGKIN LYMPHOMA, UNSPECIFIED, UNSPECIFIED SITE SNOMED Code(s): 392513095 (7) Hypertension Current Visit: No Status: Chronic Code(s): I10 - ESSENTIAL (PRIMARY) HYPERTENSION SNOMED Code(s): 13471634 Comment: - dose Decrease bisoprolol to 5 mg. (8) Aortic stenosis Current Visit: Yes Status: Acute Code(s): I35.0 - NONRHEUMATIC AORTIC (VALVE ) STENOSIS SNOMED Code(s): 90618132 Comment: - Echo 06/20/19 moderate . EF 55%. (9) Mitral regurgitation Current Visit: Yes Status: Acute Comment: - Echo 06/20/19 moderate . EF 55 %. (10) Pulmonary hypertension Current Visit: Yes Status: Acute Code(s): I27.20 - PULMONARY HYPERTENSION, UNSPECIFIED SNOMED Code(s): 36212113 Comment: - Echo 06/20/19 moderate . EF 55%. PA 75 mmhg same as 2016 echo - Anticoagulated. - May benefit for referral for pulmonary hypertension if compliant (11) DVT prophylaxis Current Visit: Yes Status: Acute Code(s): WHJ7186 - SNOMED Code(s): 332759368 Comment: melony
[2019-06-23] MEDS: Atorvastatin* 40 MG TAB PO SCH (17:51)
[2019-06-23 19:26] VITALS: BP 175/49
--- NOTE | 2019-06-24 00:40 | DS ---
CC: Dr. Talya Brooks; Dr. Santos DISCHARGE SUMMARY: DATE OF ADMISSION: 06/20/19 DATE OF DISCHARGE: 06/23/19 PRIMARY CARE PHYSICIAN: Dr. Talya Brooks. FINAL DISCHARGE DIAGNOSES: 1. Encephalopathy secondary to seizures and new onset. 2. History of cerebrovascular accident. 3. Hypertension. 4. Chronic atrial fibrillation. 5. Hypothyroidism. 6. History of Hodgkin's lymphoma 7. History of aortic stenosis. 8. History of mitral regurgitation. 9. History of pulmonary hypertension. HOSPITAL COURSE: The patient presented to [facility] on 06/20/19 for altered mental status at home with a known history of prior stroke, known history of aortic stenosis, Hodgkin's lymphoma, prior history of meningioma. She was admitted to the medical service given her altered mental status. On admission, in the emergency room, she was noted to have seizure-like activity witnessed by the admitting provider. She was admitted to the ICU service, a Neurology consultation was obtained and she was loaded with IV Keppra. The patient was maintained on the ICU and was transitioned to the hospitalist service the following day. She was seen and evaluated by me initially on . She was maintaining her airway. She was awake, arousable, but confused at baseline. She was at that time still on IV Keppra. I transitioned her to oral Keppra. Diet was advanced. She remained on seizure precaution and resumed her oral medications per home. She was seen and evaluated by Neurology the following day and Dr. Santos did see and evaluate the patient, confirmed the diagnosis of seizure and recommended continuing Keppra 500 mg b.i.d. Rest of the hospital course was uncomplicated. Today, she was seen by me. She was doing fairly well, feeding herself, out of bed. Her mentation is back to baseline as per . Therefore, I deemed the patient is stable now to return home with proper outpatient followup with her primary and Neurology. DISCHARGE MEDICATIONS: 1. Continue her Chloraseptic lozenges. 2. Keppra 500 mg twice a day. Continue home medications: 1. Levoxyl 175 mcg daily. 2. Allopurinol 100 daily. 3. Aldactone 50 daily. 4. Digoxin 125 daily. 5. Magnesium 400 b.i.d. 6. Lipitor 10 daily. 7. Famotidine 40 mg daily. 8. Apixaban 500 mg twice a day. 9. Bisoprolol down to 5 mg daily from 10 due to her soft blood pressure. INPATIENT DIAGNOSTIC STUDY: She had the following as an inpatient. Labs with white count up 13,000, down to 12.3 yesterday. Lactic acid on presentation 2.7 , down to 1.2. Chemistry fairly unremarkable with a A1c 6.3. Lipid panel: LDL 35. Urinalysis negative. Digoxin 0.8. Microbiology: She had negative blood culture, negative MRSA screen, negative stool studies. Imaging: She had a brain CT on admission, 06/20/19. Multiple old infarcts. No acute infarct on her initial CT from the MRI. Chest x-ray, 06/20/19 on admission: No acute cardiopulmonary disease. CTA head and neck, 06/20/19, does not reveal any significant stenosis or aneurysm. Questionable 4.4 mm in the lingula of the base. Recommended CT followup outpatient. Brain MRI: No evidence of acute infarct. Chronic infarction involving primarily left hemisphere. DISCHARGE RECOMMENDATIONS: Follow up with primary care, Dr. Talya Brooks at 11 a.m. and to follow up with Dr. Jaden Santos in 1 month from Neurology. My recommendations to primary: Please assess and follow up for the incidental pulmonary nodule 4.4 mm which was found incidentally. We will refer for that outpatient. DISCHARGE CONDITION: Stable DISCHARGE DISPOSITION: Home [id number]/[facility] #: [id number] MTDD
== END 2019-06-23 18:25 | disposition home or self-care (01) | DRG 53 ==
LOC: ED 03:05 → ICU 07:30 → MED 18:13
PROVIDERS: ADMIT Internal Medicine Critical Care Medicine; ATTEND Internal Medicine
DX: R56.9 Unspecified convulsions (principal); R40.2222 Coma scale, best verbal response, incomprehensible words, at arrival to emergency department; I48.20 Chronic atrial fibrillation, unspecified; I50.22 Chronic systolic (congestive) heart failure; I51.81 Takotsubo syndrome; C81.90 Hodgkin lymphoma, unspecified, unspecified site; R47.01 Aphasia; E03.9 Hypothyroidism, unspecified; I27.20 Pulmonary hypertension, unspecified; I11.0 Hypertensive heart disease with heart failure; J45.909 Unspecified asthma, uncomplicated; K21.9 Gastro-esophageal reflux disease without esophagitis; R40.2362 Coma scale, best motor response, obeys commands, at arrival to emergency department; R40.2142 Coma scale, eyes open, spontaneous, at arrival to emergency department; M10.9 Gout, unspecified; M35.00 Sjogren syndrome, unspecified; G93.89 Other specified disorders of brain; I08.0 Rheumatic disorders of both mitral and aortic valves; E11.9 Type 2 diabetes mellitus without complications; M48.04 Spinal stenosis, thoracic region; R91.1 Solitary pulmonary nodule; Z88.1 Allergy status to other antibiotic agents; Z88.8 Allergy status to other drugs, medicaments and biological substances; Z86.73 Personal history of transient ischemic attack (TIA), and cerebral infarction without residual deficits; Z79.01 Long term (current) use of anticoagulants; Z88.2 Allergy status to sulfonamides; Z88.6 Allergy status to analgesic agent; Z88.0 Allergy status to penicillin; Z90.710 Acquired absence of both cervix and uterus; Z87.891 Personal history of nicotine dependence
CPT/HCPCS: 36415; 70496; 70498; 70553; 71045; 80048; 80053; 80061; 80162; 81003; 82550; 83036; 83605; 83630; 83735; 84100; 84443; 84484; 85025; 85610; 85730; 86850; 86900; 86901; 87040; 87045; 87046; 87077; 87641; 87899; 93005; 93306; 95816; 96374; 96375; 99284; A9270-GY; A9579; J1953; J2060; J2405; J3475; Q9967